=== PATIENT | female | born 1965 | race Caucasian/White ===

== ENCOUNTER 2018-02-07 06:36 | Emergency (ER) | END 2018-02-07 09:30 | disposition home or self-care (01) ==

== ENCOUNTER → 2018-04-11 | Outpatient (CLI) | END | disposition home or self-care (01) ==

== ENCOUNTER → 2018-07-04 | Outpatient (CLI) | END | disposition home or self-care (01) ==

== ENCOUNTER 2018-10-21 13:01 | Emergency (ER) | payer MEDICARE, OTHER ==
[~2018-10-21] VITALS: Ht 175.3 cm; Wt 132.2 kg
[~2018-10-21 13:01] MED LIST: ASPI-903 PO; ATOR40TA68 PO; CHOL100062 PO; GLIM4TAB PO; LANT3I SC; LEVO200T6 PO; LISI40TA3 PO; MAGN400T28 PO; MTF1000T PO; OMEP40CA6 PO; PIOG30TA12 PO; RANI300T PO; SITA100T11 PO
[2018-10-21 13:02] VITALS: BP 128/68; PULSE 80; RESP 18; Ht 175.3 cm; Wt 132.2 kg
[2018-10-21] MEDS ORDERED: PROM6.2515 PO (13:37)
[2018-10-21] MEDS ORDERED: AZIT250T PO (13:37)
[2018-10-21] MEDS ORDERED: BENZ-6 PO (13:37)
--- NOTE | 2018-10-21 14:29 | ERD ---
ER Documentation Chief Complaint Chief Complaint pt is bib caregiver with c/o cough for a few days HPI 53-year-old female presents with caregiver complaining of a cough times a few days. Patient take NyQuil but no other medications. She states the pain comes and goes over the last few weeks but states for about a week at a time. She has no fevers. No history of respiratory problems in the past. Medical history is hypertension diabetes with insulin dependency. NKDA. Surgical history cholecystectomy. Social history denies ROS All systems reviewed and are negative except as per history of present illness. Medications Home Meds Active Scripts Benzonatate* (Tessalon Perle*) 100 Mg Capsule, 100 MG PO Q8H PRN for COUGH, #30 CAP Prov:RALEIGH WOODARD PA-C 10/21/18 Promethazine Hcl* (Promethazine Hcl* Syrup) 6.25 Mg/5 Ml Syrup, 6.25 MG PO Q6H PRN for COUGH, #100 ML Prov:RALEIGH WOODARD PA-C 10/21/18 Azithromycin* (Zithromax*) 250 Mg Tablet, 250 MG PO .ZPACK DIRECTED, #6 TAB TAKE 500 MG (2 TABS) THE FIRST DAY THEN 250 MG (1 TAB) DAYS 2-5 Prov:RALEIGH WOODARD PA-C 10/21/18 Reported Medications Pioglitazone Hcl* (Actos*) 30 Mg Tablet, 30 MG PO DAILY, #30 TAB 02/07/18 Insulin Glargine* (Lantus*) 100 Unit/Ml Soln, 70 UNIT SC BID, #1 VIAL 02/07/18 Ranitidine Hcl* (Ranitidine Hcl*) 300 Mg Tablet, 300 MG PO HS, #30 TAB 02/07/18 Cholecalciferol* (Vitamin D3*) 1,000 Unit Tablet, 1000 UNIT PO DAILY, TAB 02/07/18 Atorvastatin* (Atorvastatin*) 40 Mg Tablet, 40 MG PO QHS, #30 TAB 02/07/18 Sitagliptin* (Januvia*) 100 Mg Tablet, 100 MG PO DAILY, #30 TAB 02/07/18 Omeprazole* (Omeprazole*) 40 Mg Capsule.dr, 40 MG PO AC BREAKFAST, #30 CAP 02/07/18 Aspirin* (Aspirin* Chew) 81 Mg Tab.chew, 81 MG PO DAILY, TAB.CHEW 02/07/18 Levothyroxine Sodium* (Levothyroxine Sodium*) 200 Mcg Tablet, 200 MCG PO BEFORE BREAKFAST, #30 TAB 02/07/18 Glimepiride* (Glimepiride*) 4 Mg Tablet, 4 MG PO WITH BREAKFAST DINNE, TAB 02/07/18 Magnesium Oxide* (Magnesium Oxide*) 400 Mg Tablet, 400 MG PO BID, TAB 02/07/18 Metformin* (Glucophage*) 1,000 Mg Tablet, 1000 MG PO BID, #60 TAB 02/07/18 Lisinopril* (Lisinopril*) 40 Mg Tablet, 40 MG PO BID, #30 TAB 02/07/18 Allergies Allergies: Coded Allergies: No Known Allergy (Unverified , 02/07/18) PMhx/Soc History of Surgery: Yes (THYROIDECTOMY) Anesthesia Reaction: No Hx Neurological Disorder: No Hx Respiratory Disorders: No Hx Cardiac Disorders: Yes (HTN) Hx Psychiatric Problems: No Hx Miscellaneous Medical Probl: Yes (dm) Hx Alcohol Use: No Hx Substance Use: No Hx Tobacco Use: No Smoking Status: Never smoker FmHx Family History: No diabetes, No coronary disease, No other Physical Exam Vitals Vital Signs Date Temp Pulse Resp B/P (MAP) Pulse Ox O2 O2 Flow FiO2 Time Delivery Rate 10/21/18 97.0 80 18 128/68 98 13:02 (88) Physical Exam GENERAL: The patient is well-appearing, well-nourished, in no acute distress HEENT: Atraumatic. Conjunctivae are pink. Pupils equal, round, and reactive to light. There is no scleral icterus. Tympanic membranes clear bilaterally. Oropharynx clear. NECK: C-spine is soft and supple. There is no meningismus. There is no cervical lymphadenopathy. CHEST: Clear to auscultation bilaterally. There are no rales, wheezes or rhonchi. HEART: Regular rate and rhythm. No murmurs, clicks, rubs or gallops. Procedures/MDM ER course: Pertussis test checked given patient has had chronic cough. DM: 53-year-old female presenting with cough. I have low suspicion for respiratory distress or hypoxia. I have low suspicion for pneumonia. Patient be discharged with supportive medications and recommended to refrain from taking antibiotics until symptoms persist longer than 3 or 4 more days. Patient is told symptoms change or worsen to return immediately to the ER. Patient is recommended to follow-up with primary care. All questions answered at discharge Departure Diagnosis: Primary Impression: Cough Condition: Stable Patient Instructions: Cough, Chronic, Uncertain Cause, (Adult) Referrals: ANNA MARIE WHITMORE MD (PCP) Additional Instructions: FOLLOW UP WITH YOUR PRIMARY CARE PHYSICIAN TOMORROW.Return to this facility if you are not improving as expected. RALEIGH WOODARD PA-C Oct 21, 2018 14:29
== END 2018-10-21 13:49 | disposition home or self-care (01) ==
LOC: FTE 13:01
DX: R05 Cough (principal); E11.9 Type 2 diabetes mellitus without complications; I10 Essential (primary) hypertension; Z79.82 Long term (current) use of aspirin; Z79.4 Long term (current) use of insulin
CPT/HCPCS: 87206; 99283

== ENCOUNTER → 2019-01-23 | Outpatient (CLI) | payer MEDICARE, OTHER ==
[~2019-01-23] MED LIST changes: +AZIT250T PO; +BENZ-6 PO; +PROM6.2515 PO
== END | disposition home or self-care (01) ==
LOC: LAB 16:48
PROVIDERS: ATTEND Internal Medicine
DX: R79.81 Abnormal blood-gas level (principal)
CPT/HCPCS: 36600; 82803

== ENCOUNTER 2019-02-21 09:40 | Inpatient (IN) | payer MEDICARE, OTHER ==
[~2019-02-21] VITALS: Ht 175.3 cm; Wt 129.1 kg
[2019-02-21] MEDS ORDERED: SOD CHLORIDE 0.9% 500 ML IV STA (09:45)
[2019-02-21] MEDS ORDERED: ONDANSETRON 4 MG INJ IV ONE (10:00)
[2019-02-21] MEDS ORDERED: HYDROmorphONE 1 MG/ML SYG IV ONE (10:00)
[2019-02-21] MEDS ORDERED: MAGN400T28 PO (10:13)
[2019-02-21] MEDS ORDERED: LISI40TA3 PO (10:15)
[2019-02-21] MEDS ORDERED: ATOR40TA68 PO (10:16)
[2019-02-21] MEDS ORDERED: MV-M1CAP15 PO (10:18)
[2019-02-21] MEDS ORDERED: METF100010 PO (10:18)
[2019-02-21] MEDS ORDERED: OMEP40CA6 PO (10:19)
[2019-02-21] MEDS ORDERED: GLIM4TAB PO (10:19)
--- NOTE | 2019-02-21 10:19 | ERD ---
ER Documentation Chief Complaint Chief Complaint glf-right upper arm deformity, bruising to r side of face, abrasion l knee HPI Very pleasant 53-year-old female history of diabetes who presents to the emergency room complaining of right upper extremity pain. Just prior to arrival patient states that she tripped on something on the ground and fell forward on outstretched arm. The patient landed on her right arm and now has deformity to the distal shaft humerus. Patient notes 10 out of 10 throbbing pain to the right upper extremity. She did hit the right periorbital region on the ground but did not lose consciousness. No anticoagulants. She scraped her left knee. Tetanus is up-to-date. She denies any headache or vision changes, no neck pain. No other extremity pain other than the right upper extremity. She is right- hand dominant. ROS All systems reviewed and are negative except as per history of present illness. Medications Home Meds Reported Medications Insulin Glargine* (Lantus*) 100 Unit/Ml Soln, 70 UNIT SC QHS, #1 VIAL 02/21/19 Pioglitazone Hcl* (Pioglitazone Hcl*) 30 Mg Tablet, 30 MG PO DAILY, TAB 02/21/19 Ranitidine Hcl* (Ranitidine Hcl*) 300 Mg Tablet, 300 MG PO HS, #30 TAB 02/21/19 Linagliptin (TRADJENTA) 5 Mg Tablet, 5 MG PO DAILY, TAB 02/21/19 Cholecalciferol (Vitamin D3) (VITAMIN D-3) 2,000 Unit Capsule, 2000 UNIT PO DAILY, CAP 02/21/19 Aspirin* (Aspirin* EC) 81 Mg Tablet.dr, 81 MG PO DAILY, TAB 02/21/19 Levothyroxine Sodium* (Levothyroxine Sodium*) 200 Mcg Tablet, 200 MCG PO BEFORE BREAKFAST, #30 TAB 02/21/19 Omeprazole* (Omeprazole*) 40 Mg Capsule.dr, 40 MG PO DAILY, #30 CAP 02/21/19 Glimepiride* (Glimepiride*) 4 Mg Tablet, 4 MG PO WITH BREAKFAST DINNE, TAB 02/21/19 Metformin Hcl* (Metformin Hcl*) 1,000 Mg Tablet, 1000 MG PO WITH BREAKFAST DINNE, #60 TAB 02/21/19 Mv-Mn/FA/Vit K/Lycop/Lut/Coq10 (Daily Multivitamin Capsule) 1 Each Capsule, 1 EACH PO DAILY, CAP 02/21/19 Atorvastatin* (Atorvastatin*) 40 Mg Tablet, 40 MG PO QHS, #30 TAB 02/21/19 Lisinopril* (Lisinopril*) 40 Mg Tablet, 40 MG PO BID, #30 TAB 02/21/19 Magnesium Oxide* (Magnesium Oxide*) 400 Mg Tablet, 400 MG PO BID, TAB 02/21/19 Discontinued Reported Medications Pioglitazone Hcl* (Actos*) 30 Mg Tablet, 30 MG PO DAILY, #30 TAB 02/07/18 Insulin Glargine* (Lantus*) 100 Unit/Ml Soln, 70 UNIT SC BID, #1 VIAL 02/07/18 Ranitidine Hcl* (Ranitidine Hcl*) 300 Mg Tablet, 300 MG PO HS, #30 TAB 02/07/18 Cholecalciferol* (Vitamin D3*) 1,000 Unit Tablet, 1000 UNIT PO DAILY, TAB 02/07/18 Atorvastatin* (Atorvastatin*) 40 Mg Tablet, 40 MG PO QHS, #30 TAB 02/07/18 Sitagliptin* (Januvia*) 100 Mg Tablet, 100 MG PO DAILY, #30 TAB 02/07/18 Omeprazole* (Omeprazole*) 40 Mg Capsule.dr, 40 MG PO AC BREAKFAST, #30 CAP 02/07/18 Aspirin* (Aspirin* Chew) 81 Mg Tab.chew, 81 MG PO DAILY, TAB.CHEW 02/07/18 Levothyroxine Sodium* (Levothyroxine Sodium*) 200 Mcg Tablet, 200 MCG PO BEFORE BREAKFAST, #30 TAB 02/07/18 Glimepiride* (Glimepiride*) 4 Mg Tablet, 4 MG PO WITH BREAKFAST DINNE, TAB 02/07/18 Magnesium Oxide* (Magnesium Oxide*) 400 Mg Tablet, 400 MG PO BID, TAB 02/07/18 Metformin* (Glucophage*) 1,000 Mg Tablet, 1000 MG PO BID, #60 TAB 02/07/18 Lisinopril* (Lisinopril*) 40 Mg Tablet, 40 MG PO BID, #30 TAB 02/07/18 Discontinued Scripts Benzonatate* (Tessalon Perle*) 100 Mg Capsule, 100 MG PO Q8H PRN for COUGH, #30 CAP Prov:RALEIGH WOODARD PA-C 10/21/18 Promethazine Hcl* (Promethazine Hcl* Syrup) 6.25 Mg/5 Ml Syrup, 6.25 MG PO Q6H PRN for COUGH, #100 ML Prov:RALEIGH WOODARD PA-C 10/21/18 Azithromycin* (Zithromax*) 250 Mg Tablet, 250 MG PO .ZPACK DIRECTED, #6 TAB TAKE 500 MG (2 TABS) THE FIRST DAY THEN 250 MG (1 TAB) DAYS 2-5 Prov:RALEIGH WOODARD PA-C 10/21/18 Allergies Allergies: Coded Allergies: No Known Allergy (Unverified , 02/21/19) PMhx/Soc History of Surgery: Yes (THYROIDECTOMY; Cholecystectomy) Anesthesia Reaction: No Hx Neurological Disorder: No Hx Respiratory Disorders: No Hx Cardiac Disorders: Yes (HTN) Hx Psychiatric Problems: No Hx Miscellaneous Medical Probl: Yes (dm) Hx Alcohol Use: No Hx Substance Use: No Hx Tobacco Use: No Smoking Status: Never smoker FmHx Family History: No diabetes Physical Exam Vitals Vital Signs Date Temp Pulse Resp B/P (MAP) Pulse Ox O2 O2 Flow FiO2 Time Delivery Rate 02/21/19 98.2 102 18 143/78 97 10:00 (99) Physical Exam Airway is intact Bilateral breath sounds Strong distal pulses No obvious deficits General: Well developed, well nourished, no acute distress Head: Normocephalic, atraumatic, other than small abrasion to the right periorbital ridge Eyes: Pupils equally reactive, EOM intact ENT: Moist mucous membranes, normal jaw opening and closing Neck: Supple, no lymphadenopathy, No midline tenderness, deformities, step-offs to the cervical spine, full active and passive range of motion without midline pain. Respiratory: Lungs clear bilaterally, no distress, no chest wall tenderness, no crepitus Cardiovascular: RRR, no murmurs, rubs, or gallops Abdominal: Soft, non-tender, non-distended, no peritoneal signs, pelvis is stable : Deferred MSK: The patient has obvious deformity to the distal shaft humerus. No focal tenderness of the clavicle or proximal humerus. Right wrist without focal tenderness. Strong distal pulses and good capillary refill. Compartments are soft of the right upper extremity. Mild abrasion noted to left knee but no bony abnormalities, full active and passive range of motion. No ligamentous instability. no midline tenderness deformities or step-offs to the thoracolumbar spine Neurologic: Alert and oriented, moving all extremities, normal speech, no focal weakness, no cerebellar signs Skin: No ecchymoses or bruising to the chest or abdomen Psych: Normal mood Result Diagram: 02/21/19 1019 02/21/19 1019 Results 24 hrs Laboratory Tests Test 02/21/19 10:19 White Blood Count 5.4 10^3/ul Red Blood Count 3.97 10^6/ul Hemoglobin 10.9 g/dl Hematocrit 33.8 % Mean Corpuscular Volume 85.1 fl Mean Corpuscular Hemoglobin 27.5 pg Mean Corpuscular Hemoglobin Concent 32.2 g/dl Red Cell Distribution Width 17.7 % Platelet Count 193 10^3/UL Mean Platelet Volume 11.6 fl Immature Granulocytes % 0.900 % Neutrophils % 75.7 % Lymphocytes % 13.1 % Monocytes % 7.0 % Eosinophils % 2.9 % Basophils % 0.4 % Nucleated Red Blood Cells % 0.0 /100WBC Immature Granulocytes # 0.050 10^3/ul Neutrophils # 4.1 10^3/ul Lymphocytes # 0.7 10^3/ul Monocytes # 0.4 10^3/ul Eosinophils # 0.2 10^3/ul Basophils # 0.0 10^3/ul Nucleated Red Blood Cells # 0.0 10^3/ul Prothrombin Time 11.6 Sec Prothrombin Time Ratio 0.9 INR International Normalized Ratio 0.84 Activated Partial Thromboplast Time 27.3 Sec Sodium Level 141 mmol/L Potassium Level 5.0 mmol/L Chloride Level 108 mmol/L Carbon Dioxide Level 22 mmol/L Anion Gap 11 Blood Urea Nitrogen 36 mg/dl Creatinine 1.16 mg/dl Est Glomerular Filtrat Rate mL/min 49 mL/min Glucose Level 221 mg/dl Calcium Level 9.1 mg/dl Current Medications Medications Dose Sig/Tariq Start Time Status Last (Trade) Ordered Route PRN Stop Time Admin Dose Reason Admin Sodium 500 ml @ Q1H STAT 02/21/19 DC 02/21/19 Chloride 500 mls/hr IV 09:45 02/21/19 10:22 10:44 1 mg ONCE ONCE 02/21/19 DC 02/21/19 Hydromorphone IV 10:00 02/21/19 10:22 HCl 10:01 (Dilaudid) Ondansetron 4 mg ONCE ONCE 02/21/19 DC 02/21/19 HCl (Zofran IV 10:00 02/21/19 10:22 Inj) 10:01 Ondansetron 4 mg BRIDGE ORDER 02/21/19 HCl (Zofran PRN IV 12:30 02/22/19 Inj) NAUSEA/VOMITI 12:29 NG 650 mg ER BRIDGE 02/21/19 Acetaminophen PRN PO 12:30 02/22/19 (Tylenol .MILD PAIN 12:29 Tab) 1-3 OR TEMP Procedures/MDM EKG, MONITORS, & DIAGNOSTIC IMAGING: Chest x-ray: I reviewed and interpreted a 1 view of the chest Mediastinum: No enlargement Cardiac silhouette: No cardiomegaly Airspace: Clear lung medina bilaterally without evidence of pneumothorax Bones: No evidence of fracture EKG: I reviewed and interpreted a 12-lead EKG. Rhythm: Normal sinus rhythm ST Changes: No contiguous ST segment elevations T waves: No contiguous T wave inversions Impression: [No evidence of acute cardiac ischemia] X-ray right humerus I reviewed and interpreted multiple views of the x-ray Bones: Fully displaced distal shaft humerus fracture Soft tissue: No evidence of foreign body PROCEDURES: Splint Application Note: Splint type: Sling and long-arm Extremity: Right upper extremity Indication: Fracture The patient was consented at bedside prior to splint application and states understanding of risks, benefits, and alternatives. The patient was neurovascularly intact prior to and status post application of the splint. The patient tolerated the procedure well and there were no complications. LAB INTERPRETATION: I reviewed the laboratory testing and it shows [no evidence of acute process] MEDICAL DECISION MAKING: Patient with mechanical trip and fall. Mild abrasion to the right face but no loss of consciousness. The patient has abrasions of left knee but no bony abnormalities. Clinical exam consistent with likely distal shaft humerus fracture. Compartments are soft. Patient's right upper extremity is neurovascular intact. Patient likely requires operative intervention given location of fracture. The patient will have preop laboratory testing and diagnostic imaging. The patient does not meet high-risk criteria and based on NEXUS cervical spine criteria there is no indication for cervical spine imaging at this time. While the patient did have abrasion of the face there is no loss conscious. No indication for CT imaging at this time. ER COURSE: * IV was established, patient was given pain control medication. Patient was immobilized. * heat plant specialist notified. CONSULTATION: Orthopedic surgeon, Dr. Merrill notified via telephone around 10:15 AM DISPOSITION PLAN: Accepting care team and consultations: I discussed the current laboratory data, diagnostic imaging and emergency care provided. Admitting team: Patient was reported to be admitted to Dr. Zulema Kelley who recommends admission to [facility]. Dr. Paige has accepted the case. Admitting team indication: Insurance directed Departure Diagnosis: Primary Impression: Closed fracture of right distal humerus Encounter type: initial encounter Fracture morphology: other fracture Fracture alignment: displaced Qualified Codes: S42.491A - Other displaced fracture of lower end of right humerus, initial encounter for closed fracture Additional Impressions: Abrasion, left knee, initial encounter Abrasion of face Encounter type: initial encounter Qualified Codes: S00.81XA - Abrasion of other part of head, initial encounter Condition: Stable CHAKA PEDERSEN MD Feb 21, 2019 10:19
[2019-02-21] MEDS ORDERED: LEVO200T6 PO (10:20)
[2019-02-21] MEDS ORDERED: ASPI-817 PO (10:20)
[2019-02-21] MEDS ORDERED: CHOL200073 PO (10:22)
[2019-02-21] MEDS ORDERED: LINA5TAB PO (10:22)
[2019-02-21] MEDS ORDERED: RANI300T PO (10:23)
[2019-02-21] MEDS ORDERED: PIOG30TA71 PO (10:23)
[2019-02-21] MEDS ORDERED: LANT3I SC (10:24)
[2019-02-21] MEDS ORDERED: ACETAMINOPHEN 325 MG TAB PO PRN (12:30)
[2019-02-21] MEDS ORDERED: ONDANSETRON 4 MG INJ IV PRN (12:30)
--- NOTE | 2019-02-21 14:50 | CONS ---
DATE OF ADMISSION: 02/21/2019 DATE OF CONSULTATION: 02/21/2019 HISTORY OF PRESENT ILLNESS: The patient is a 53-year-old female who was admitted on 02/21/2019 when she was brought into the Emergency Room because of the painful swelling and deformity involving the r ight upper extremity. According to the patient, she had a ground-level fall, landing on cement Truzip in her driveway on the day of her admission, because she tripped over something. She obviously la nded on her right upper extremity and developed a painful swelling and deformities. PAST MEDICAL HISTORY: She is known to have diabetes mellitus and hypertension. She had a thyroidect arely and cholecystectomy in the past. She claims that her diabetes is under control. PHYSICAL EXAMINATION: My examination revealed a 53-year-old female who was not in any acute distress . The right upper extremity was immobilized in a long arm posterior splint down to the level of the hand. There was tenderness and abnormal motion in the distal portion of the right arm and the examin ation through the splint and there was an obvious numbness in the distribution of the radial nerve of the right hand; however, the range of motion of the wrist cannot be tested at this time because of t he splint immobilization. DIAGNOSTIC STUDIES: X-rays of the right elbow revealed a presence of obvious comminuted fracture of the right humerus which is displaced. DIAGNOSTIC IMPRESSION: Comminuted and displaced fracture involving the distal shaft of the right hum erus. TREATMENT PLAN: Surgery as soon as she can be medically cleared for exploration of the area for poss ible neurovascular injury, followed by open reduction and internal fixation of the comminuted fractur e involving the distal shaft of the right humerus. Dictated By: EDUAR DUKE/NORA Conf#: [id number] DID#: [id number] CC: CHALINO MTZ MD;*EndCC*
[2019-02-21 15:03] VITALS: Ht 175.3 cm; Wt 129.1 kg
--- NOTE | 2019-02-21 16:12 | HP ---
Date/Time of Note Date/Time of Note DATE: 02/21/19 TIME: 16:04 Assessment/Plan VTE Prophylaxis SCD applied (from Nsg): Yes Pharmacological prophylaxis: LMWH Lines/Catheters IV Catheter Type (from Nrsg): Saline Lock Assessment/Plan Assessment/Plan -Closed fracture of right distal humerus. Dr. Merrill is following in orthopedic surgery consultation. Given patient has a history of hypertension and history of PA will obtain cardiology clearance Dr Ferguson prior to ORIF R humerus. -Abrasion, left knee, initial encounter -Abrasion of face -Diabetes, continue Tradjenta Actos Lantus and NovoLog -Hypertension, continue lisinopril -Hypothyroidism, continue levothyroxine -Morbid obesity with BMI of 42 -History of minor stroke, continue aspirin -History of PA according to the patient Further recommendations based on clinical course. Plan of care discussed with Dr. Paige. Result Diagram: 02/21/19 1019 02/21/19 1019 Results 24hrs Laboratory Tests Test 02/21/19 10:19 White Blood Count 5.4 # Red Blood Count 3.97 L Hemoglobin 10.9 L Hematocrit 33.8 L Mean Corpuscular Volume 85.1 Mean Corpuscular Hemoglobin 27.5 L Mean Corpuscular Hemoglobin Concent 32.2 Red Cell Distribution Width 17.7 H Platelet Count 193 Mean Platelet Volume 11.6 H Immature Granulocytes % 0.900 H Neutrophils % 75.7 Lymphocytes % 13.1 L Monocytes % 7.0 Eosinophils % 2.9 Basophils % 0.4 Nucleated Red Blood Cells % 0.0 Immature Granulocytes # 0.050 H Neutrophils # 4.1 Lymphocytes # 0.7 L Monocytes # 0.4 Eosinophils # 0.2 Basophils # 0.0 Nucleated Red Blood Cells # 0.0 Prothrombin Time 11.6 L Prothrombin Time Ratio 0.9 INR International Normalized Ratio 0.84 Activated Partial Thromboplast Time 27.3 Sodium Level 141 Potassium Level 5.0 Chloride Level 108 Carbon Dioxide Level 22 Anion Gap 11 Blood Urea Nitrogen 36 H Creatinine 1.16 H Est Glomerular Filtrat Rate mL/min 49 L Glucose Level 221 H Calcium Level 9.1 HPI/ROS Admit Date/Time Admit Date/Time Feb 21, 2019 at 12:07 Hx of Present Illness The patient is a 53-year-old female with history of diabetes, hypertension, hypothyroidism, history of stroke, and morbid obesity who lives with us in assisted living facility with visiting nurse twice a day. Patient was brought to the emergency room with complaints of right upper extremity pain. Patient stated that she tripped on something and sustained a ground-level fall with outstretched arm. Patient complains of significant pain in the right upper extremity. Patient denies any shortness of breath denies any chest pain patient denies any loss of consciousness. Patient denies any headache denies any vision changes denies any neck pain. X-ray of the right humerus revealed displaced comminuted fracture of the distal humeral diaphysis. Patient is admitted for further evaluation and management to medical surgical floor. ROS 12 point review of system is negative except for what mentioned in HPI PMH/Family/Social Past Medical History Medical History: diabetes, hypertension, hypothyroid Medications Current Medications Ondansetron HCl (Zofran Inj) 4 mg BRIDGE ORDER PRN IV NAUSEA/VOMITING; Start 02/21/19 at 12:30; Stop 02/22/19 at 12:29 Acetaminophen (Tylenol Tab) 650 mg ER BRIDGE PRN PO .MILD PAIN 1-3 OR TEMP; Start 02/21/19 at 12:30; Stop 02/22/19 at 12:29 Aspirin (Halfprin) 81 mg DAILY PO ; Start 02/22/19 at 09:00; Status UNV Atorvastatin Calcium (Lipitor) 40 mg QHS PO ; Start 02/21/19 at 21:00; Status UNV Cholecalciferol (Vitamin D) 2,000 unit DAILY PO ; Start 02/22/19 at 09:00; Status UNV Glimepiride (Amaryl) 4 mg WITH BREAKFAST DINNE PO ; Start 02/21/19 at 17:55; Status UNV Insulin Glargine (Lantus) 70 units QHS SC ; Start 02/21/19 at 21:00; Status UNV Levothyroxine Sodium (Synthroid) 200 mcg BEFORE BREAKFAST PO ; Start 02/22/19 at 07:00; Status UNV Linagliptin (Tradjenta) 5 mg DAILY PO ; Start 02/22/19 at 09:00; Status UNV Coded Allergies: No Known Allergy (Unverified , 02/21/19) Past Surgical History Past Surgical Hx: cholecystectomy (Status post open cholecystectomy in 2013), other (Status post total thyroidectomy in 1993 for thyroid cancer per patient, status post left ankle surgery) Family History Significant Family History: diabetes Social History Alcohol Use: none Smoking Status: Former smoker Drug Use: none Exam/Review of Systems Vital Signs Vitals Vital Signs Date Temp Pulse Resp B/P (MAP) Pulse Ox O2 O2 Flow FiO2 Time Delivery Rate 02/21/19 83 15 139/78 94 Room Air 13:00 (98) 02/21/19 98.2 10:00 Exam Constitutional: alert, oriented Head: normocephalic Neck: supple Respiratory: clear to auscultation Cardiovascular: nl pulses Gastrointestinal: soft, non-tender Extremities: normal pulses, other (Right upper extremity immobilized in splint) Neurological: nl mental status Skin: nl VICKI Michel Feb 21, 2019 16:12
[2019-02-21] MEDS ORDERED: GLUCOSE GEL 15 GRAM TUBE BUCCAL PRN (17:00)
[2019-02-21] MEDS ORDERED: DEXTROSE 50% 50 ML SYRINGE IV PRN ×2 (17:00)
[2019-02-21] MEDS ORDERED: GLUCAGON 1 MG INJ IM PRN (17:00)
[2019-02-21] MEDS ORDERED: GLUCOSE GEL 15 GRAM TUBE PO PRN ×2 (17:00)
[2019-02-21] MEDS ORDERED: GLIMEPIRIDE 4 MG TAB PO SCH (17:55)
[2019-02-21] MEDS ORDERED: morphine 2 MG INJ IV PRN (18:10)
[2019-02-21] MEDS: metFORMIN 500 MG TAB PO SCH (18:16)
[2019-02-21] MEDS: INSULIN ASPART [NOVOLOG] 3 ML PEN SC SCH ×2 (18:17→20:17)
[2019-02-21 19:16] VITALS: BP 121/58; PULSE 97; RESP 18
[2019-02-21] MEDS: LISINOPRIL 20 MG TAB PO SCH (20:15)
[2019-02-21] MEDS: MAGNESIUM OXIDE 400 MG TAB PO SCH (20:15)
[2019-02-21] MEDS: ATORVASTATIN 40 MG TAB PO SCH (20:15)
[2019-02-21] MEDS ORDERED: Insulin NOVOLOG SS MILD Algorithm (SS with meals and bedtime) SC SCH (21:00)
[2019-02-21] MEDS ORDERED: RANITIDINE 150 MG TAB PO SCH (21:00)
[2019-02-21] MEDS: INSULIN GLARGINE [LANTus] (100 UNITS/ML) SYG SC SCH (22:24)
[2019-02-21] MEDS: morphine 4 MG/ML VIAL IV PRN (22:26)
[2019-02-22 01:26] VITALS: BP 122/60; PULSE 88; RESP 20
[2019-02-22] MEDS: ACCU-CHEK XX SCH (02:00)
[2019-02-22] MEDS: ACCUCHECK 2 AM XX SCH (02:02)
[2019-02-22] MEDS: morphine 4 MG/ML VIAL IV PRN (06:01)
[2019-02-22] MEDS: PANTOPRAZOLE (EC) 40 MG TAB PO SCH (06:03)
[2019-02-22] MEDS: LEVOTHYROXINE 100 MCG TAB PO SCH (06:03)
[2019-02-22 07:39] VITALS: BP 135/62; PULSE 79; RESP 16
[2019-02-22] MEDS: MAGNESIUM OXIDE 400 MG TAB PO SCH ×2 (08:45→21:18)
[2019-02-22] MEDS: PIOGLITAZONE 30 MG TAB PO SCH (08:45)
[2019-02-22] MEDS: ASPIRIN (EC) 81 MG TAB PO SCH (08:45)
[2019-02-22] MEDS: LISINOPRIL 20 MG TAB PO SCH ×2 (08:45→21:18)
[2019-02-22] MEDS: CHOLECALCIFEROL 2,000 UNIT CAP PO SCH (08:46)
[2019-02-22] MEDS: MULTIVITAMINS/MINERALS TAB PO SCH (08:46)
[2019-02-22] MEDS: LINAGLIPTIN 5 MG TABLET PO SCH (08:46)
[2019-02-22] MEDS: metFORMIN 500 MG TAB PO SCH ×2 (08:48→17:41)
[2019-02-22] MEDS: INSULIN ASPART [NOVOLOG] 3 ML PEN SC SCH ×4 (08:51→21:00)
[2019-02-22] MEDS: ENOXAPARIN 40 MG/0.4 ML SYG SC SCH (08:52)
--- NOTE | 2019-02-22 12:42 | PN ---
Date/Time of Note Date/Time of Note DATE: 02/22/19 TIME: 12:38 Assessment/Plan VTE Prophylaxis Risk score (from Ns)>0 risk: 4 SCD applied (from Ns): Yes Pharmacological prophylaxis: NA/contraindicated Pharm contraindication: surgical contra Lines/Catheters IV C[facility] Type (from [facility] Peripheral IV Urinary Cath still in place: No Assessment/Plan Hospital Course Patient remains hemodynamically stable denies any chest pain, denies shortness of breath. Cleared from cardiology and internal medicine standpoint for orthopedic surgery. Assessment/Plan -Closed fracture of right distal humerus. Dr. Merrill is following in orthopedic surgery consultation. Pending ORIF R humerus. S/p evaluation by Dr. Ferguson in cardiology consultation, cleared for surgery. -Abrasion, left knee, initial encounter, continue local care. -Abrasion of face, continue local care. -Diabetes, continue Tradjenta Actos Lantus and NovoLog -Hypertension, continue lisinopril -Hypothyroidism, continue levothyroxine -Morbid obesity with BMI of 42 -History of minor stroke, continue aspirin -History of [place] according to the patient Further recommendations based on clinical course. Plan of care discussed with Dr. Paige. Result Diagram: 02/21/19 1019 02/21/19 1019 Results 24hrs Laboratory Tests Test 02/21/19 18:15 02/21/19 20:14 02/21/19 22:22 02/22/19 00:19 Bedside Glucose 285 H 260 H 208 Troponin I < 0.012 Test 02/22/19 01:40 02/22/19 04:38 02/22/19 08:36 Bedside Glucose 171 177 Troponin I < 0.012 Exam/Review of Systems Exam Vitals Vital Signs Date Temp Pulse Resp B/P (MAP) Pulse Ox O2 O2 Flow FiO2 Time Delivery Rate 02/22/19 98.6 79 16 135/62 93 Room Air 07:39 (86) Intake and Output 02/21/19 02/21/19 02/22/19 1414:59 22:59 06:59 IntakeIntake Total 560 ml BalanceBalance 560 ml Exam Constitutional: alert, oriented Respiratory: clear to auscultation Cardiovascular: nl pulses Gastrointestinal: soft, non-tender Extremities: normal pulses, other (Right upper extremity immobilized in splint) Neurological: nl mental status Skin: nl turgor Results Results 24hrs Laboratory Tests Test 02/21/19 18:15 02/21/19 20:14 02/21/19 22:22 02/22/19 00:19 Bedside Glucose 285 H 260 H 208 Troponin I < 0.012 Test 02/22/19 01:40 02/22/19 04:38 02/22/19 08:36 Bedside Glucose 171 177 Troponin I < 0.012 Medications Medication Current Medications Aspirin (Halfprin) 81 mg DAILY PO Last administered on 02/22/19 08:45; Admin Dose 81 MG; Start 02/22/19 at 09:00 Atorvastatin Calcium (Lipitor) 40 mg QHS PO Last administered on 02/21/19 20:15; Admin Dose 40 MG; Start 02/21/19 at 21:00 Cholecalciferol (Vitamin D) 2,000 unit DAILY PO Last administered on 02/22/19 08:46; Admin Dose 2,000 UNIT; Start 02/22/19 at 09:00 Insulin Glargine (Lantus) 70 units QHS SC Last administered on 02/21/19 22:24; Admin Dose 70 UNITS; Start 02/21/19 at 21:00 Levothyroxine Sodium (Synthroid) 200 mcg BEFORE BREAKFAST PO Last administered on 02/22/19 06:03; Admin Dose 200 MCG; Start 02/22/19 at 07:00 Linagliptin (Tradjenta) 5 mg DAILY PO Last administered on 02/22/19 08:46; Admin Dose 5 MG; Start 02/22/19 at 09:00 Lisinopril (Zestril) 40 mg BID PO Last administered on 02/22/19 08:45; Admin Dose 40 MG; Start 02/21/19 at 21:00 Magnesium Oxide (Mag-Ox 400) 400 mg BID PO Last administered on 02/22/19 08:45; Admin Dose 400 MG; Start 02/21/19 at 21:00 Metformin HCl (Glucophage) 1,000 mg WITH BREAKFAST DINNE PO Last administered on 02/22/19 08:48; Admin Dose 1,000 MG; Start 02/21/19 at 17:55 Pioglitazone HCl (Actos) 30 mg DAILY PO Last administered on 02/22/19 08:45; Admin Dose 30 MG; Start 02/22/19 at 09:00 Multivitamins/ Minerals (Theragran-M) 1 tab DAILY PO Last administered on 02/22/19at 08:46; Admin Dose 1 TAB; Start 02/22/19 at 09:00 Pantoprazole (Protonix Tab) 40 mg DAILY@06 PO Last administered on 02/22/19at 06:03; Admin Dose 40 MG; Start 02/22/19 at 06:00 Miscellaneous Information 1 ea NOTE XX ; Start 02/21/19 at 17:00 Glucose (Glutose) 15 gm Q15M PRN PO DECREASED GLUCOSE; Start 02/21/19 at 17:00 Glucose (Glutose) 22.5 gm Q15M PRN PO DECREASED GLUCOSE; Start 02/21/19 at 17:00 Dextrose (D50w Syringe) 25 ml Q15M PRN IV DECREASED GLUCOSE; Start 02/21/19 at 17:00 Dextrose (D50w Syringe) 50 ml Q15M PRN IV DECREASED GLUCOSE; Start 02/21/19 at 17:00 Glucagon (Glucagen) 1 mg Q15M PRN IM DECREASED GLUCOSE; Start 02/21/19 at 17:00 Glucose (Glutose) 15 gm Q15M PRN BUCCAL DECREASED GLUCOSE; Start 02/21/19 at 17:00 Diagnostic Test (Pha) (Accu-Chek) 1 ea 02 XX Last administered on 02/22/19at 02:00; Admin Dose 1 EA; Start 02/22/19 at 02:00 Insulin Aspart (Novolog Insulin Pen) NOVOLOG *MILD* ALGORITHM WITH MEALS BEDTI ND SC Last administered on 02/22/19at 08:51; Admin Dose 1 UNIT; Start 02/21/19 at 17:55 Acetaminophen/ Hydrocodone Bitart ([place] (10/325)) 1 tab Q4H PRN PO MODERATE PAIN LEVEL 4-6; Start 02/21/19 at 18:10 Diagnostic Test (Pha) (Accu-Chek) 1 ea 02 XX Last administered on 02/22/19at 02:02; Admin Dose 1 EA; Start 02/21/19 at 19:30 Morphine Sulfate (morphine) 4 mg Q4H PRN IV SEVERE PAIN LEVEL 7-10 Last a dministered on 02/22/19at 06:01; Admin Dose 4 MG; Start 02/21/19 at 22:30 Enoxaparin Sodium (Lovenox) 40 mg DAILY SC Last administered on 02/22/19at 08:52; Admin Dose 40 MG; Start 02/22/19 at 09:00 VICKI ZULUAGA Feb 22, 2019 12:42
--- NOTE | 2019-02-22 13:00 | RADRPT ---
Echocardiogram Report Patient Name: DEL CHOWDARYPatient ID: [id number] : 1965 (53y 8m)Study Date: 02/22/2019 7:16:30 AM Gender: FAccession #: [id number] Tech: OK Location: [facility] Ref.Physician: VICKI ZULUAGA Height(Cm): BSA: Weight(Kg): Quality: AdequateOrder Physician: VICKI ZULUAGA Account #: Procedures: Echocardiographic Report: Transthoracic echocardiogram with complete 2D, M-Mode, and doppler examination. Indications: Evaluate Left Ventricular function. Measurements: 2D/M Mode Doppler Measurement Value Normal Range Measurement Value Normal Range LVIDd 2D 4.9 [ 3.8 - 5.2 ] cm AV Peak Andrew 1.1 [ 100.0 - 170.0 ] cm/sec LVIDs 2D 2.6 [ 2.2 - 3.5 ] cm AV Peak PG 5.0 [ 2.0 - 9.0 ] mmHg LVPWd 2D 1.1 [ 0.6 - 0.9 ] cm LVOT Peak Andrew 1.1 [ 70.0 - 110.0 ] cm/sec IVSd 2D 1.1 [ 0.6 - 0.9 ] cm LVOT Peak PG 5.0 [ 2.0 - 6.0 ] mmHg AoR Diam 2D 2.1 [ 2.3 - 3.1 ] cm MV E Peak Andrew 0.7 [ 60.0 - 130.0 ] cm/sec EDV 2D 113.0 [ 46.0 - 106.0 ] ml MV A Peak Andrew 1.1 [ 100.0 - 120.0 ] cm/sec ESV 2D 24.1 [ 14.0 - 42.0 ] ml MV E/A 0.6 [ 0.8 - 1.5 ] ratio EF 2D 78.7 [ 54.0 - 74.0 ] percent MV Decel Time 254 [ 104 - 258 ] msec LA Dimen 2D 3.9 [ 2.7 - 3.8 ] cm Lat E` Andrew 0.1 [ 10.0 - 15.0 ] cm/sec Lateral E/E` 7.7 [ 1.0 - 2.0 ] ratio MV E/A 0.6 [ 0.8 - 1.5 ] ratio TR Peak Andrew 2.8 [ 100.0 - 280.0 ] cm/sec TR Peak PG 31.0 mmHg RVSP 34.0 [ 10.0 - 36.0 ] mmHg RA Pressure 3.0 mmHg Findings: Left Ventricle: Normal left ventricular systolic function. Normal left ventricular cavity size. Mild concentric left ventricular hypertrophy. Ejection fraction is visually estimated at 65 %. Tissue Doppler/Mitral Doppler indices are consistent with impaired relaxation (Stage I diastolic dysfunction). Right Ventricle: Normal right ventricular size. Normal right ventricular systolic function. Left Atrium: The left atrium is normal in size. Right Atrium: The right atrium is normal in size. Mitral Valve: Normal appearance and function of the mitral valve with trace physiologic regurgitation. Aortic Valve: Normal appearance of the aortic valve. No significant aortic stenosis or insufficiency. Tricuspid Valve: Normal appearance and function of the tricuspid valve with trace physiologic regurgitation. The estimated Peak RVSP is 34 mmHg. Pulmonic Valve: Normal pulmonic valve appearance. Pericardium: Normal pericardium with no significant pericardial effusion. Aorta: Normal aortic root. IVC: Normal size and normal respiratory collapse consistent with normal right atrial pressure. Conclusions: Normal left ventricular systolic function. Normal left ventricular cavity size. Mild concentric left ventricular hypertrophy. Ejection fraction is visually estimated at 65 %. Tissue Doppler/Mitral Doppler indices are consistent with impaired relaxation (Stage I diastolic dysfunction). Normal right ventricular size. Normal right ventricular systolic function. The left atrium is normal in size. The right atrium is normal in size. No significant valvular stenosis or regurgitation seen. Normal pericardium with no significant pericardial effusion. Electronically Signed By: Andrew Ferguson 2019-02-22 12:59:06 PDT
--- NOTE | 2019-02-22 13:36 | CONS ---
Assessment/Plan Assessment/Plan Hospital Course (Demo Recall) Preoperative cardiac risk stratification Right upper extremity fracture Preserved left ventricular ejection fraction Diabetes Hypertension Dyslipidemia Patient with mechanical fall and right upper extremity fracture Patient with good exercise capacity as mentioned, able to walk at least 2 fli ghts of stairs and 100 feet without any symptoms of chest pain or shortness of breath No significant ischemic abnormalities on ECG, echocardiogram with preserved left ventricular ejection fraction Given risk factors, patient is at an intermediate risk for any untoward cardiac events for orthopedic surgery. The benefits likely outweigh the risks. From a cardiac standpoint, okay to proceed with surgery at the current time Consultation Date/Type/Reason Admit Date/Time Feb 21, 2019 at 12:07 Type of Consult Cardiology Reason for Consultation Preoperative cardiac risk stratification Date/Time of Note DATE: 02/22/19 TIME: 13:30 Hx of Present Illness This is a 53-year-old female with past medical history of diabetes, hypertension who presents after mechanical fall. Patient was walking out of her house and tripped over a piece of void. She fell on her arm as well as her face. No chest pain or shortness of breath, no loss of consciousness. Patient found to have right upper extremity fracture and is pending surgery. Patient denies any past cardiac history. She is active, she can climb at least 2 flights of stairs with no symptoms of chest pain or shortness of breath. She can walk at least 100 feet without symptoms of chest pain or shortness of breath. 12 point review of systems was performed with all pertinent positives and negatives mentioned above and all else is negative Past Medical History Medical History: diabetes, high cholesterol, hypertension Home Meds Reported Medications Insulin Glargine* (Lantus*) 100 Unit/Ml Soln, 70 UNIT SC QHS, #1 VIAL 02/21/19 Pioglitazone Hcl* (Pioglitazone Hcl*) 30 Mg Tablet, 30 MG PO DAILY, TAB 02/21/19 Ranitidine Hcl* (Ranitidine Hcl*) 300 Mg Tablet, 300 MG PO HS, #30 TAB 02/21/19 Linagliptin (TRADJENTA) 5 Mg Tablet, 5 MG PO DAILY, TAB 02/21/19 Cholecalciferol (Vitamin D3) (VITAMIN D-3) 2,000 Unit Capsule, 2000 UNIT PO DAILY, CAP 02/21/19 Aspirin* (Aspirin* EC) 81 Mg Tablet.dr, 81 MG PO DAILY, TAB 02/21/19 Levothyroxine Sodium* (Levothyroxine Sodium*) 200 Mcg Tablet, 200 MCG PO BEFORE BREAKFAST, #30 TAB 02/21/19 Omeprazole* (Omeprazole*) 40 Mg Capsule.dr, 40 MG PO DAILY, #30 CAP 02/21/19 Glimepiride* (Glimepiride*) 4 Mg Tablet, 4 MG PO WITH BREAKFAST DINNE, TAB 02/21/19 Metformin Hcl* (Metformin Hcl*) 1,000 Mg Tablet, 1000 MG PO WITH BREAKFAST DINNE, #60 TAB 02/21/19 Mv-Mn/FA/Vit K/Lycop/Lut/Coq10 (Daily Multivitamin Capsule) 1 Each Capsule, 1 EACH PO DAILY, CAP 02/21/19 Atorvastatin* (Atorvastatin*) 40 Mg Tablet, 40 MG PO QHS, #30 TAB 02/21/19 Lisinopril* (Lisinopril*) 40 Mg Tablet, 40 MG PO BID, #30 TAB 02/21/19 Magnesium Oxide* (Magnesium Oxide*) 400 Mg Tablet, 400 MG PO BID, TAB 02/21/19 Discontinued Reported Medications Pioglitazone Hcl* (Actos*) 30 Mg Tablet, 30 MG PO DAILY, #30 TAB 02/07/18 Insulin Glargine* (Lantus*) 100 Unit/Ml Soln, 70 UNIT SC BID, #1 VIAL 02/07/18 Ranitidine Hcl* (Ranitidine Hcl*) 300 Mg Tablet, 300 MG PO HS, #30 TAB 02/07/18 Cholecalciferol* (Vitamin D3*) 1,000 Unit Tablet, 1000 UNIT PO DAILY, TAB 02/07/18 Atorvastatin* (Atorvastatin*) 40 Mg Tablet, 40 MG PO QHS, #30 TAB 02/07/18 Sitagliptin* (Januvia*) 100 Mg Tablet, 100 MG PO DAILY, #30 TAB 02/07/18 Omeprazole* (Omeprazole*) 40 Mg Capsule.dr, 40 MG PO AC BREAKFAST, #30 CAP 02/07/18 Aspirin* (Aspirin* Chew) 81 Mg Tab.chew, 81 MG PO DAILY, TAB.CHEW 02/07/18 Levothyroxine Sodium* (Levothyroxine Sodium*) 200 Mcg Tablet, 200 MCG PO BEFORE BREAKFAST, #30 TAB 02/07/18 Glimepiride* (Glimepiride*) 4 Mg Tablet, 4 MG PO WITH BREAKFAST DINNE, TAB 02/07/18 Magnesium Oxide* (Magnesium Oxide*) 400 Mg Tablet, 400 MG PO BID, TAB 02/07/18 Metformin* (Glucophage*) 1,000 Mg Tablet, 1000 MG PO BID, #60 TAB 02/07/18 Lisinopril* (Lisinopril*) 40 Mg Tablet, 40 MG PO BID, #30 TAB 02/07/18 Discontinued Scripts Benzonatate* (Tessalon Perle*) 100 Mg Capsule, 100 MG PO Q8H PRN for COUGH, #30 CAP Prov:RALEIGH WOODARD PA-C 10/21/18 Promethazine Hcl* (Promethazine Hcl* Syrup) 6.25 Mg/5 Ml Syrup, 6.25 MG PO Q6H PRN for COUGH, #100 ML Prov:RALEIGH WOODARD PA-C 10/21/18 Azithromycin* (Zithromax*) 250 Mg Tablet, 250 MG PO .JORGE DIRECTED, #6 TAB TAKE 500 MG (2 TABS) THE FIRST DAY THEN 250 MG (1 TAB) DAYS 2-5 Prov:RALEIGH WOODARD PA-C 10/21/18 Medications Current Medications Aspirin (Halfprin) 81 mg DAILY PO Last administered on 02/22/19at 08:45; Admin Dose 81 MG; Start 02/22/19 at 09:00 Atorvastatin Calcium (Lipitor) 40 mg QHS PO Last administered on 02/21/19at 20:15; Admin Dose 40 MG; Start 02/21/19 at 21:00 Cholecalciferol (Vitamin D) 2,000 unit DAILY PO Last administered on 02/22/19at 08:46; Admin Dose 2,000 UNIT; Start 02/22/19 at 09:00 Insulin Glargine (Lantus) 70 units QHS SC Last administered on 02/21/19at 22:24; Admin Dose 70 UNITS; Start 02/21/19 at 21:00 Levothyroxine Sodium (Synthroid) 200 mcg BEFORE BREAKFAST PO Last administered on 02/22/19at 06:03; Admin Dose 200 MCG; Start 02/22/19 at 07:00 Linagliptin (Tradjenta) 5 mg DAILY PO Last administered on 02/22/19at 08:46; Admin Dose 5 MG; Start 02/22/19 at 09:00 Lisinopril (Zestril) 40 mg BID PO Last administered on 02/22/19at 08:45; Admin Dose 40 MG; Start 02/21/19 at 21:00 Magnesium Oxide (Mag-Ox 400) 400 mg BID PO Last administered on 02/22/19at 08:45; Admin Dose 400 MG; Start 02/21/19 at 21:00 Metformin HCl (Glucophage) 1,000 mg WITH BREAKFAST DINNE PO Last administered on 02/22/19at 08:48; Admin Dose 1,000 MG; Start 02/21/19 at 17:55 Pioglitazone HCl (Actos) 30 mg DAILY PO Last administered on 02/22/19at 08:45; Admin Dose 30 MG; Start 02/22/19 at 09:00 Multivitamins/ Minerals (Theragran-M) 1 tab DAILY PO Last administered on 02/22/19at 08:46; Admin Dose 1 TAB; Start 02/22/19 at 09:00 Pantoprazole (Protonix Tab) 40 mg DAILY@06 PO Last administered on 02/22/19at 06:03; Admin Dose 40 MG; Start 02/22/19 at 06:00 Miscellaneous Information 1 ea NOTE XX ; Start 02/21/19 at 17:00 Glucose (Glutose) 15 gm Q15M PRN PO DECREASED GLUCOSE; Start 02/21/19 at 17:00 Glucose (Glutose) 22.5 gm Q15M PRN PO DECREASED GLUCOSE; Start 02/21/19 at 17:00 Dextrose (D50w Syringe) 25 ml Q15M PRN IV DECREASED GLUCOSE; Start 02/21/19 at 17:00 Dextrose (D50w Syringe) 50 ml Q15M PRN IV DECREASED GLUCOSE; Start 02/21/19 at 17:00 Glucagon (Glucagen) 1 mg Q15M PRN IM DECREASED GLUCOSE; Start 02/21/19 at 17:00 Glucose (Glutose) 15 gm Q15M PRN BUCCAL DECREASED GLUCOSE; Start 02/21/19 at 17:00 Diagnostic Test (Pha) (Accu-Chek) 1 ea 02 XX Last administered on 02/22/19at 02:00; Admin Dose 1 EA; Start 02/22/19 at 02:00 Insulin Aspart (Novolog Insulin Pen) NOVOLOG *MILD* ALGORITHM WITH MEALS BEDTIME SC Last administered on 02/22/19at 13:08; Admin Dose 3 UNIT; Start 02/21/19 at 17:55 Acetaminophen/ Hydrocodone Bitart ([place] (10/325)) 1 tab Q4H PRN PO MODERATE PAIN LEVEL 4-6; Start 02/21/19 at 18:10 Diagnostic Test (Pha) (Accu-Chek) 1 ea 02 XX Last administered on 02/22/19at 02:02; Admin Dose 1 EA; Start 02/21/19 at 19:30 Morphine Sulfate (morphine) 4 mg Q4H PRN IV SEVERE PAIN LEVEL 7-10 Last administered on 02/22/19at 06:01; Admin Dose 4 MG; Start 02/21/19 at 22:30 Enoxaparin Sodium (Lovenox) 40 mg DAILY SC Last administered on 02/22/19at 08:52; Admin Dose 40 MG; Start 02/22/19 at 09:00 Allergies: Coded Allergies: No Known Allergy (Unverified , 02/21/19) Past Surgical History Past Surgical Hx: cholecystectomy (Status post open cholecystectomy in 2013), other (Status post total thyroidectomy in 1993 for thyroid cancer per patient, status post left ankle surgery) Social History Alcohol Use: none Smoking Status: Former smoker Drug Use: none Exam/Review of Systems Vital Signs Vitals Vital Signs Date Temp Pulse Resp B/P (MAP) Pulse Ox O2 O2 Flow FiO2 Time Delivery Rate 02/22/19 98.6 79 16 135/62 93 Room Air 07:39 (86) Intake and Output 02/21/19 02/21/19 02/22/19 1515:00 23:00 07:00 IntakeIntake Total 560 ml BalanceBalance 560 ml Exam Constitutional: alert, oriented (No apparent distress, obese) Head: normocephalic, lacerations (Right side of face) Respiratory: other (Coarse breath sounds bilaterally, no wheezing) Cardiovascular: regular rate and rhythm, other (S1-S2 heard) Gastrointestinal: soft, non-tender, bowel sounds Extremities: other (Trace lower extremity edema, right arm and bandage) Labs Result Diagram: 02/21/19 1019 02/21/19 1019 Results 24hrs Laboratory Tests Test 02/21/19 18:15 02/21/19 20:14 02/21/19 22:22 02/22/19 00:19 Bedside Glucose 285 H 260 H 208 Troponin I < 0.012 Test 02/22/19 01:40 02/22/19 04:38 02/22/19 08:36 02/22/19 13:00 Bedside Glucose 171 177 257 H Troponin I < 0.012 Imaging Imaging ECG demonstrates sinus rhythm at 77 bpm, QRS 96 ms, no significant ischemic ST abnormalities Medications Medications Current Medications Aspirin (Halfprin) 81 mg DAILY PO Last administered on 02/22/19 08:45; Admin Dose 81 MG; Start 02/22/19 at 09:00 Atorvastatin Calcium (Lipitor) 40 mg QHS PO Last administered on 02/21/19 20:15; Admin Dose 40 MG; Start 02/21/19 at 21:00 Cholecalciferol (Vitamin D) 2,000 unit DAILY PO Last administered on 02/22/19 08:46; Admin Dose 2,000 UNIT; Start 02/22/19 at 09:00 Insulin Glargine (Lantus) 70 units QHS SC Last administered on 02/21/19 22:24; Admin Dose 70 UNITS; Start 02/21/19 at 21:00 Levothyroxine Sodium (Synthroid) 200 mcg BEFORE BREAKFAST PO Last administered on 02/22/19 06:03; Admin Dose 200 MCG; Start 02/22/19 at 07:00 Linagliptin (Tradjenta) 5 mg DAILY PO Last administered on 02/22/19 08:46; Admin Dose 5 MG; Start 02/22/19 at 09:00 Lisinopril (Zestril) 40 mg BID PO Last administered on 02/22/19 08:45; Admin Dose 40 MG; Start 02/21/19 at 21:00 Magnesium Oxide (Mag-Ox 400) 400 mg BID PO Last administered on 02/22/19 08:45; Admin Dose 400 MG; Start 02/21/19 at 21:00 Metformin HCl (Glucophage) 1,000 mg WITH BREAKFAST DINNE PO Last administered on 02/22/19 08:48; Admin Dose 1,000 MG; Start 02/21/19 at 17:55 Pioglitazone HCl (Actos) 30 mg DAILY PO Last administered on 7/3/19at 08:45; Admin Dose 30 MG; Start 02/22/19 at 09:00 Multivitamins/ Minerals (Theragran-M) 1 tab DAILY PO Last administered on 02/22/19at 08:46; Admin Dose 1 TAB; Start 02/22/19 at 09:00 Pantoprazole (Protonix Tab) 40 mg DAILY@06 PO Last administered on 02/22/19at 06:03; Admin Dose 40 MG; Start 02/22/19 at 06:00 Miscellaneous Information 1 ea NOTE XX ; Start 02/21/19 at 17:00 Glucose (Glutose) 15 gm Q15M PRN PO DECREASED GLUCOSE; Start 02/21/19 at 17:00 Glucose (Glutose) 22.5 gm Q15M PRN PO DECREASED GLUCOSE; Start 02/21/19 at 17:00 Dextrose (D50w Syringe) 25 ml Q15M PRN IV DECREASED GLUCOSE; Start 02/21/19 at 17:00 Dextrose (D50w Syringe) 50 ml Q15M PRN IV DECREASED GLUCOSE; Start 02/21/19 at 17:00 Glucagon (Glucagen) 1 mg Q15M PRN IM DECREASED GLUCOSE; Start 02/21/19 at 17:00 Glucose (Glutose) 15 gm Q15M PRN BUCCAL DECREASED GLUCOSE; Start 02/21/19 at 17:00 Diagnostic Test (Pha) (Accu-Chek) 1 ea 02 XX Last administered on 02/22/19at 02:00; Admin Dose 1 EA; Start 02/22/19 at 02:00 Insulin Aspart (Novolog Insulin Pen) NOVOLOG *MILD* ALGORITHM WITH MEALS BEDTIME SC Last administered on 02/22/19at 13:08; Admin Dose 3 UNIT; Start 02/21/19 at 17:55 Acetaminophen/ Hydrocodone Bitart ([place] (10/325)) 1 tab Q4H PRN PO MODERATE PAIN LEVEL 4-6; Start 02/21/19 at 18:10 Diagnostic Test (Pha) (Accu-Chek) 1 ea 02 XX Last administered on 02/22/19at 0 2:02; Admin Dose 1 EA; Start 02/21/19 at 19:30 Morphine Sulfate (morphine) 4 mg Q4H PRN IV SEVERE PAIN LEVEL 7-10 Last administered on 02/22/19at 06:01; Admin Dose 4 MG; Start 02/21/19 at 22:30 Enoxaparin Sodium (Lovenox) 40 mg DAILY SC Last administered on 02/22/19at 08:52; Admin Dose 40 MG; Start 02/22/19 at 09:00 Andrew Ferguson DO Feb 22, 2019 13:36
[2019-02-22 14:31] VITALS: BP 131/70; PULSE 86; RESP 18
--- NOTE | 2019-02-22 15:35 | RADRPT ---
Vent Rate: 77 bpm RR Interval: 776 msec MA Interval: 142 msec QRS Duration: 96 msec QT Interval: 389 msec QTC Interval: 442 msec P-R-T [place]: 49 - -9 - 58 degrees Sinus rhythm...normal P axis, V-rate 50- 99 Electronically Signed By: Andrew Ferguson
[2019-02-22 19:58] VITALS: BP 130/68; PULSE 88; RESP 20
[2019-02-22] MEDS: ATORVASTATIN 40 MG TAB PO SCH (21:18)
[2019-02-22] MEDS: INSULIN GLARGINE [LANTus] (100 UNITS/ML) SYG SC SCH (21:26)
[2019-02-23] VITALS (30 sets, daily range): BP systolic 103–162; BP diastolic 54–85; PULSE 66–109; RESP 16–27
[2019-02-23] MEDS: morphine 4 MG/ML VIAL IV PRN ×2 (00:59→06:34)
[2019-02-23] MEDS: ACCU-CHEK XX SCH (02:00)
[2019-02-23] MEDS: ACCUCHECK 2 AM XX SCH (02:00)
[2019-02-23] MEDS: PANTOPRAZOLE (EC) 40 MG TAB PO SCH (06:34)
[2019-02-23] MEDS: LEVOTHYROXINE 100 MCG TAB PO SCH (06:34)
[2019-02-23] MEDS: metFORMIN 500 MG TAB PO SCH ×2 (07:50→20:00)
[2019-02-23] MEDS: INSULIN ASPART [NOVOLOG] 3 ML PEN SC SCH ×4 (07:50→20:58)
[2019-02-23] MEDS: MAGNESIUM OXIDE 400 MG TAB PO SCH ×2 (09:00→22:37)
[2019-02-23] MEDS: LINAGLIPTIN 5 MG TABLET PO SCH (09:00)
[2019-02-23] MEDS: ASPIRIN (EC) 81 MG TAB PO SCH (09:00)
[2019-02-23] MEDS: LISINOPRIL 20 MG TAB PO SCH ×2 (09:00→22:38)
[2019-02-23] MEDS: MULTIVITAMINS/MINERALS TAB PO SCH (09:00)
[2019-02-23] MEDS: CHOLECALCIFEROL 2,000 UNIT CAP PO SCH (09:00)
[2019-02-23] MEDS: ENOXAPARIN 40 MG/0.4 ML SYG SC SCH (09:00)
[2019-02-23] MEDS: PIOGLITAZONE 30 MG TAB PO SCH (09:00)
--- NOTE | 2019-02-23 09:53 | HPN ---
Date/Time of Note Date/Time of Note DATE: 02/23/19 TIME: 09:52 Interval H&P Admission Note Pt. seen H&P reviewed: No system changes JULISSA PRITCHETT MD Feb 23, 2019 09:53
--- NOTE | 2019-02-23 10:46 | PREAC ---
Date/Time of Note Date/Time of Note DATE: 02/23/19 TIME: 10:44 Anesthesia Eval and Record Evaluation Time Pre-Procedure Interview DATE: 02/23/19 TIME: 10:44 Age 53 Sex female NPO: 8 hrs Preoperative diagnosis right distal humerus fracture Planned procedure orif right humerus fracture Past Medical History Past Medical History: Includes Cardio: HTN Endo: Diabetes, Hypothyroid Neuro: CVA GI: Morbid obesity Surgery & Anesthesia Issues No known issue Meds Anticoagulation: No Beta Andria within 24 hr: No Reason Beta Andria not given: Pt. not on B-Andria Reported Medications Insulin Glargine* (Lantus*) 100 Unit/Ml Soln, 70 UNIT SC QHS, #1 VIAL 02/21/19 Pioglitazone Hcl* (Pioglitazone Hcl*) 30 Mg Tablet, 30 MG PO DAILY, TAB 02/21/19 Ranitidine Hcl* (Ranitidine Hcl*) 300 Mg Tablet, 300 MG PO HS, #30 TAB 02/21/19 Linagliptin (TRADJENTA) 5 Mg Tablet, 5 MG PO DAILY, TAB 02/21/19 Cholecalciferol (Vitamin D3) (VITAMIN D-3) 2,000 Unit Capsule, 2000 UNIT PO DAILY, CAP 02/21/19 Aspirin* (Aspirin* EC) 81 Mg Tablet.dr, 81 MG PO DAILY, TAB 02/21/19 Levothyroxine Sodium* (Levothyroxine Sodium*) 200 Mcg Tablet, 200 MCG PO BEFORE BREAKFAST, #30 TAB 02/21/19 Omeprazole* (Omeprazole*) 40 Mg Capsule.dr, 40 MG PO DAILY, #30 CAP 02/21/19 Glimepiride* (Glimepiride*) 4 Mg Tablet, 4 MG PO WITH BREAKFAST DINNE, TAB 02/21/19 Metformin Hcl* (Metformin Hcl*) 1,000 Mg Tablet, 1000 MG PO WITH BREAKFAST DINNE, #60 TAB 02/21/19 Mv-Mn/FA/Vit K/Lycop/Lut/Coq10 (Daily Multivitamin Capsule) 1 Each Capsule, 1 EACH PO DAILY, CAP 02/21/19 Atorvastatin* (Atorvastatin*) 40 Mg Tablet, 40 MG PO QHS, #30 TAB 02/21/19 Lisinopril* (Lisinopril*) 40 Mg Tablet, 40 MG PO BID, #30 TAB 02/21/19 Magnesium Oxide* (Magnesium Oxide*) 400 Mg Tablet, 400 MG PO BID, TAB 02/21/19 Discontinued Reported Medications Pioglitazone Hcl* (Actos*) 30 Mg Tablet, 30 MG PO DAILY, #30 TAB 02/07/18 Insulin Glargine* (Lantus*) 100 Unit/Ml Soln, 70 UNIT SC BID, #1 VIAL 02/07/18 Ranitidine Hcl* (Ranitidine Hcl*) 300 Mg Tablet, 300 MG PO HS, #30 TAB 02/07/18 Cholecalciferol* (Vitamin D3*) 1,000 Unit Tablet, 1000 UNIT PO DAILY, TAB 02/07/18 Atorvastatin* (Atorvastatin*) 40 Mg Tablet, 40 MG PO QHS, #30 TAB 02/07/18 Sitagliptin* (Januvia*) 100 Mg Tablet, 100 MG PO DAILY, #30 TAB 02/07/18 Omeprazole* (Omeprazole*) 40 Mg Capsule.dr, 40 MG PO AC BREAKFAST, #30 CAP 02/07/18 Aspirin* (Aspirin* Chew) 81 Mg Tab.chew, 81 MG PO DAILY, TAB.CHEW 02/07/18 Levothyroxine Sodium* (Levothyroxine Sodium*) 200 Mcg Tablet, 200 MCG PO BEFORE BREAKFAST, #30 TAB 02/07/18 Glimepiride* (Glimepiride*) 4 Mg Tablet, 4 MG PO WITH BREAKFAST DINNE, TAB 02/07/18 Magnesium Oxide* (Magnesium Oxide*) 400 Mg Tablet, 400 MG PO BID, TAB 02/07/18 Metformin* (Glucophage*) 1,000 Mg Tablet, 1000 MG PO BID, #60 TAB 02/07/18 Lisinopril* (Lisinopril*) 40 Mg Tablet, 40 MG PO BID, #30 TAB 02/07/18 Discontinued Scripts Benzonatate* (Tessalon Perle*) 100 Mg Capsule, 100 MG PO Q8H PRN for COUGH, #30 CAP Prov:RALEIGH WOODARD PA-C 10/21/18 Promethazine Hcl* (Promethazine Hcl* Syrup) 6.25 Mg/5 Ml Syrup, 6.25 MG PO Q6H PRN for COUGH, #100 ML Prov:RALEIGH WOODARD PA-C 10/21/18 Azithromycin* (Zithromax*) 250 Mg Tablet, 250 MG PO .JORGE DIRECTED, #6 TAB TAKE 500 MG (2 TABS) THE FIRST DAY THEN 250 MG (1 TAB) DAYS 2-5 Prov:RALEIGH WOODARD PA-C 10/21/18 Current Medications Aspirin (Halfprin) 81 mg DAILY PO Last administered on 02/22/19 08:45; Admin Dose 81 MG; Start 02/22/19 at 09:00 Atorvastatin Calcium (Lipitor) 40 mg QHS PO Last administered on 02/22/19 21:18; Admin Dose 40 MG; Start 02/21/19 at 21:00 Cholecalciferol (Vitamin D) 2,000 unit DAILY PO Last administered on 02/22/19 08:46; Admin Dose 2,000 UNIT; Start 02/22/19 at 09:00 Insulin Glargine (Lantus) 70 units QHS SC Last administered on 02/22/19 21:26; Admin Dose 70 UNITS; Start 02/21/19 at 21:00 Levothyroxine Sodium (Synthroid) 200 mcg BEFORE BREAKFAST PO Last administered on 02/23/19 06:34; Admin Dose 200 MCG; Start 02/22/19 at 07:00 Linagliptin (Tradjenta) 5 mg DAILY PO Last administered on 02/22/19 08:46; Admin Dose 5 MG; Start 02/22/19 at 09:00 Lisinopril (Zestril) 40 mg BID PO Last administered on 02/22/19 21:18; Admin Dose 40 MG; Start 02/21/19 at 21:00 Magnesium Oxide (Mag-Ox 400) 400 mg BID PO Last administered on 02/22/19 21:18; Admin Dose 400 MG; Start 02/21/19 at 21:00 Metformin HCl (Glucophage) 1,000 mg WITH BREAKFAST DINNE PO Last administered on 02/22/19 17:41; Admin Dose 1,000 MG; Start 02/21/19 at 17:55 Pioglitazone HCl (Actos) 30 mg DAILY PO Last administered on 02/22/19 08:45; Admin Dose 30 MG; Start 02/22/19 at 09:00 Multivitamins/ Minerals (Theragran-M) 1 tab DAILY PO Last administered on 02/22/19 08:46; Admin Dose 1 TAB; Start 02/22/19 at 09:00 Pantoprazole (Protonix Tab) 40 mg DAILY@06 PO Last administered on 02/23/19at 06:34; Admin Dose 40 MG; Start 02/22/19 at 06:00 Miscellaneous Information 1 ea NOTE XX ; Start 02/21/19 at 17:00 Glucose (Glutose) 15 gm Q15M PRN PO DECREASED GLUCOSE; Start 02/21/19 at 17:00 Glucose (Glutose) 22.5 gm Q15M PRN PO DECREASED GLUCOSE; Start 02/21/19 at 17:00 Dextrose (D50w Syringe) 25 ml Q15M PRN IV DECREASED GLUCOSE; Start 02/21/19 at 17:00 Dextrose (D50w Syringe) 50 ml Q15M PRN IV DECREASED GLUCOSE; Start 02/21/19 at 17:00 Glucagon (Glucagen) 1 mg Q15M PRN IM DECREASED GLUCOSE; Start 02/21/19 at 17:00 Glucose (Glutose) 15 gm Q15M PRN BUCCAL DECREASED GLUCOSE; Start 02/21/19 at 17:00 Diagnostic Test (Pha) (Accu-Chek) 1 ea 02 XX Last administered on 02/22/19at 02:00; Admin Dose 1 EA; Start 02/22/19 at 02:00 Insulin Aspart (Novolog Insulin Pen) NOVOLOG *MILD* ALGORITHM WITH MEALS BEDTIME SC Last administered on 02/22/19at 17:40; Admin Dose 2 UNIT; Start 02/21 at 17:55 Acetaminophen/ Hydrocodone Bitart ([place] (10/325)) 1 tab Q4H PRN PO MODERATE PAIN LEVEL 4-6; Start 02/21/19 at 18:10 Diagnostic Test (Pha) (Accu-Chek) 1 ea 02 XX Last administered on 02/22/19at 02:02; Admin Dose 1 EA; Start 02/21/19 at 19:30 Morphine Sulfate (morphine) 4 mg Q4H PRN IV SEVERE PAIN LEVEL 7-10 Last administered on 02/23/19at 06:34; Admin Dose 4 MG; Start 02/21/19 at 22:30 Enoxaparin Sodium (Lovenox) 40 mg DAILY SC Last administered on 02/22/19at 08:52; Admin Dose 40 MG; Start 7/3/19 at 09:00 Meds reviewed: Yes Allergies Coded Allergies: No Known Allergy (Unverified , 02/21/19) Allergies Reviewed: Yes Labs/Studies Labs Reviewed: Reviewed by anesthesiologist Result Diagram: 02/23/19 0936 02/21/19 1019 Laboratory Tests 02/23/19 09:36 test: Negative Studies: ECG, CXR Pre-procedure Exam Last vitals Vital Signs Date Temp Pulse Resp B/P (MAP) Pulse Ox O2 O2 Flow FiO2 Time Delivery Rate 02/23/19 98.7 66 18 124/59 90 07:14 (80) 02/23/19 Room Air 06:26 Airway: Adequate mouth opening, Adequate thyromental dist Mallampati: Mallampati II Teeth: Normal Lung: Normal Heart: Normal ASA Physical Status ASA physical status: 3 Emergency: None Planned Anesthetic General/MAC: ETT Nerve block: Brachial plexus (right) Planned Pain Management Single shot nerve block, Parenteral pain med Pre-operative Attestations Prior to commencing anesthesia and surgery, the patient was re-evaluated, there was verification of: *The patient's identity *The results of appropriate recent lab work and preoperative vital signs *The above evaluation not changing prior to induction *Anesthetic plan, risk benefits, alternative and complications discussed with patient/family; questions answered; patient/family understands, accepts and wishes to proceed. AZAM BURK Feb 23, 2019 10:46
--- NOTE | 2019-02-23 11:37 | PREAC ---
Date/Time of Note Date/Time of Note DATE: 02/23/19 TIME: 11:36 Anesthesia Eval and Record Evaluation Time Pre-Procedure Interview DATE: 02/23/19 TIME: 11:36 Age 53 Sex female NPO: 8 hrs Preoperative diagnosis right distal humerus fracture Planned procedure ORIF right humerus fracture Past Medical History Past Medical History: Includes Cardio: HTN, Dyslipidemia, [place], CAD Endo: Diabetes, Hypothyroid Neuro: CVA GI: Morbid obesity Surgery & Anesthesia Issues No known issue Meds Anticoagulation: No Beta Andria within 24 hr: No Reason Beta Andria not given: Pt. not on B-Andria Reported Medications Insulin Glargine* (Lantus*) 100 Unit/Ml Soln, 70 UNIT SC QHS, #1 VIAL 02/21/19 Pioglitazone Hcl* (Pioglitazone Hcl*) 30 Mg Tablet, 30 MG PO DAILY, TAB 02/21/19 Ranitidine Hcl* (Ranitidine Hcl*) 300 Mg Tablet, 300 MG PO HS, #30 TAB 02/21/19 Linagliptin (TRADJENTA) 5 Mg Tablet, 5 MG PO DAILY, TAB 02/21/19 Cholecalciferol (Vitamin D3) (VITAMIN D-3) 2,000 Unit Capsule, 2000 UNIT PO DAILY, CAP 02/21/19 Aspirin* (Aspirin* EC) 81 Mg Tablet.dr, 81 MG PO DAILY, TAB 02/21/19 Levothyroxine Sodium* (Levothyroxine Sodium*) 200 Mcg Tablet, 200 MCG PO BEFORE BREAKFAST, #30 TAB 02/21/19 Omeprazole* (Omeprazole*) 40 Mg Capsule.dr, 40 MG PO DAILY, #30 CAP 02/21/19 Glimepiride* (Glimepiride*) 4 Mg Tablet, 4 MG PO WITH BREAKFAST DINNE, TAB 02/21/19 Metformin Hcl* (Metformin Hcl*) 1,000 Mg Tablet, 1000 MG PO WITH BREAKFAST DINNE, #60 TAB 02/21/19 Mv-Mn/FA/Vit K/Lycop/Lut/Coq10 (Daily Multivitamin Capsule) 1 Each Capsule, 1 EACH PO DAILY, CAP 02/21/19 Atorvastatin* (Atorvastatin*) 40 Mg Tablet, 40 MG PO QHS, #30 TAB 02/21/19 Lisinopril* (Lisinopril*) 40 Mg Tablet, 40 MG PO BID, #30 TAB 02/21/19 Magnesium Oxide* (Magnesium Oxide*) 400 Mg Tablet, 400 MG PO BID, TAB 02/21/19 Discontinued Reported Medications Pioglitazone Hcl* (Actos*) 30 Mg Tablet, 30 MG PO DAILY, #30 TAB 02/07/18 Insulin Glargine* (Lantus*) 100 Unit/Ml Soln, 70 UNIT SC BID, #1 VIAL 02/07/18 Ranitidine Hcl* (Ranitidine Hcl*) 300 Mg Tablet, 300 MG PO HS, #30 TAB 02/07/18 Cholecalciferol* (Vitamin D3*) 1,000 Unit Tablet, 1000 UNIT PO DAILY, TAB 02/07/18 Atorvastatin* (Atorvastatin*) 40 Mg Tablet, 40 MG PO QHS, #30 TAB 02/07/18 Sitagliptin* (Januvia*) 100 Mg Tablet, 100 MG PO DAILY, #30 TAB 02/07/18 Omeprazole* (Omeprazole*) 40 Mg Capsule.dr, 40 MG PO AC BREAKFAST, #30 CAP 02/07/18 Aspirin* (Aspirin* Chew) 81 Mg Tab.chew, 81 MG PO DAILY, TAB.CHEW 02/07/18 Levothyroxine Sodium* (Levothyroxine Sodium*) 200 Mcg Tablet, 200 MCG PO BEFORE BREAKFAST, #30 TAB 02/07/18 Glimepiride* (Glimepiride*) 4 Mg Tablet, 4 MG PO WITH BREAKFAST DINNE, TAB 02/07/18 Magnesium Oxide* (Magnesium Oxide*) 400 Mg Tablet, 400 MG PO BID, TAB 02/07/18 Metformin* (Glucophage*) 1,000 Mg Tablet, 1000 MG PO BID, #60 TAB 02/07/18 Lisinopril* (Lisinopril*) 40 Mg Tablet, 40 MG PO BID, #30 TAB 02/07/18 Discontinued Scripts Benzonatate* (Tessalon Perle*) 100 Mg Capsule, 100 MG PO Q8H PRN for COUGH, #30 CAP Prov:RALEIGH WOODARD PA-C 10/21/18 Promethazine Hcl* (Promethazine Hcl* Syrup) 6.25 Mg/5 Ml Syrup, 6.25 MG PO Q6H PRN for COUGH, #100 ML Prov:RALEIGH WOODARD PA-C 10/21/18 Azithromycin* (Zithromax*) 250 Mg Tablet, 250 MG PO .JORGE DIRECTED, #6 TAB TAKE 500 MG (2 TABS) THE FIRST DAY THEN 250 MG (1 TAB) DAYS 2-5 Prov:RALEIGH WOODARD PA-C 10/21/18 Current Medications Aspirin (Halfprin) 81 mg DAILY PO Last administered on 02/22/19 08:45; Admin Dose 81 MG; Start 02/22/19 at 09:00 Atorvastatin Calcium (Lipitor) 40 mg QHS PO Last administered on 02/22/19 21:18; Admin Dose 40 MG; Start 02/21/19 at 21:00 Cholecalciferol (Vitamin D) 2,000 unit DAILY PO Last administered on 02/22/19 08:46; Admin Dose 2,000 UNIT; Start 02/22/19 at 09:00 Insulin Glargine (Lantus) 70 units QHS SC Last administered on 02/22/19 21:26; Admin Dose 70 UNITS; Start 02/21/19 at 21:00 Levothyroxine Sodium (Synthroid) 200 mcg BEFORE BREAKFAST PO Last administered on 02/23/19 06:34; Admin Dose 200 MCG; Start 02/22/19 at 07:00 Linagliptin (Tradjenta) 5 mg DAILY PO Last administered on 02/22/19 08:46; Admi n Dose 5 MG; Start 02/22/19 at 09:00 Lisinopril (Zestril) 40 mg BID PO Last administered on 02/22/19 21:18; Admin Dose 40 MG; Start 02/21/19 at 21:00 Magnesium Oxide (Mag-Ox 400) 400 mg BID PO Last administered on 02/22/19 21:18; Admin Dose 400 MG; Start 02/21/19 at 21:00 Metformin HCl (Glucophage) 1,000 mg WITH BREAKFAST DINNE PO Last administered on 02/22/19 17:41; Admin Dose 1,000 MG; Start 02/21/19 at 17:55 Pioglitazone HCl (Actos) 30 mg DAILY PO Last administered on 02/22/19 08:45; Admin Dose 30 MG; Start 02/22/19 at 09:00 Multivitamins/ Minerals (Theragran-M) 1 tab DAILY PO Last administered on 7/3/19at 08:46; Admin Dose 1 TAB; Start 02/22/19 at 09:00 Pantoprazole (Protonix Tab) 40 mg DAILY@06 PO Last administered on 02/23/19at 06:34; Admin Dose 40 MG; Start 02/22/19 at 06:00 Miscellaneous Information 1 ea NOTE XX ; Start 02/21/19 at 17:00 Glucose (Glutose) 15 gm Q15M PRN PO DECREASED GLUCOSE; Start 02/21/19 at 17:00 Glucose (Glutose) 22.5 gm Q15M PRN PO DECREASED GLUCOSE; Start 02/21/19 at 17:00 Dextrose (D50w Syringe) 25 ml Q15M PRN IV DECREASED GLUCOSE; Start 02/21/19 at 17:00 Dextrose (D50w Syringe) 50 ml Q15M PRN IV DECREASED GLUCOSE; Start 02/21/19 at 17:00 Glucagon (Glucagen) 1 mg Q15M PRN IM DECREASED GLUCOSE; Start 02/21/19 at 17:00 Glucose (Glutose) 15 gm Q15M PRN BUCCAL DECREASED GLUCOSE; Start 02/21/19 at 17:00 Diagnostic Test (Pha) (Accu-Chek) 1 ea 02 XX Last administered on 02/22/19at 02:00; Admin Dose 1 EA; Start 02/22/19 at 02:00 Insulin Aspart (Novolog Insulin Pen) NOVOLOG *MILD* ALGORITHM WITH MEALS BEDTIME SC Last administered on 02/22/19at 17:40; Admin Dose 2 UNIT; Start 02/21/19 at 17:55 Acetaminophen/ Hydrocodone Bitart ([place] (10/325)) 1 tab Q4H PRN PO MODERATE PAIN LEVEL 4-6; Start 02/21/19 at 18:10 Diagnostic Test (Pha) (Accu-Chek) 1 ea 02 XX Last administered on 02/22/19at 02:02; Admin Dose 1 EA; Start 02/21/19 at 19:30 Morphine Sulfate (morphine) 4 mg Q4H PRN IV SEVERE PAIN LEVEL 7-10 Last administered on 02/23/19at 06:34; Admin Dose 4 MG; Start 02/21/19 at 22:30 Enoxaparin Sodium (Lovenox) 40 mg DAILY SC Last administered on 02/22/19at 08:52; Admin Dose 40 MG; Start 02/22/19 at 09:00 Meds reviewed: Yes Allergies Coded Allergies: No Known Allergy (Unverified , 02/21/19) Allergies Reviewed: Yes Labs/Studies Labs Reviewed: Reviewed by anesthesiologist Result Diagram: 02/23/19 0936 02/21/19 1019 Laboratory Tests 02/23/19 09:36 test: Negative Studies: ECG, CXR, 2D Echo Pre-procedure Exam Last vitals Vital Signs Date Temp Pulse Resp B/P (MAP) Pulse Ox O2 O2 Flow FiO2 Time Delivery Rate 02/23/19 98.7 66 18 124/59 90 07:14 (80) 02/23/19 Room Air 06:26 Airway: Adequate mouth opening, Adequate thyromental dist Mallampati: Mallampati II Teeth: Normal Lung: Normal Heart: Normal ASA Physical Status ASA physical status: 3 Emergency: None Planned Anesthetic General/MAC: ETT (vs. ), LMA Nerve block: Brachial plexus (right) Planned Pain Management Single shot nerve block, Parenteral pain med Pre-operative Attestations Prior to commencing anesthesia and surgery, the patient was re-evaluated, there was verification of: *The patient's identity *The results of appropriate recent lab work and preoperative vital signs *The above evaluation not changing prior to induction *Anesthetic plan, risk benefits, alternative and complications discussed with patient/family; questions answered; patient/family understands, accepts and wishes to proceed. SIL HYDE MD Feb 23, 2019 11:37
[2019-02-23] MEDS ORDERED: LABETALOL HCL 20MG INJ IV PRN (12:00)
[2019-02-23] MEDS ORDERED: ONDANSETRON 4 MG INJ IV PRN (12:00)
[2019-02-23] MEDS ORDERED: PROCHLORPERAZINE 10 MG INJ IV PRN (12:00)
[2019-02-23] MEDS ORDERED: HYDROmorphONE 1 MG/5 ML IV SYRINGE IV PRN ×3 (12:00)
[2019-02-23] MEDS ORDERED: FENTAnyl 50 MCG/ML VIAL IV PRN (12:00)
[2019-02-23] MEDS ORDERED: hydrALAzine 20 MG INJ IV PRN (12:00)
[2019-02-23] MEDS ORDERED: MEPERIDINE 25 MG INJ IV PRN (12:00)
[2019-02-23] MEDS ORDERED: DIPHENHYDRAMINE 50 MG INJ IV PRN (12:00)
--- NOTE | 2019-02-23 12:01 | PN ---
Date/Time of Note Date/Time of Note DATE: 02/23/19 TIME: 11:58 Assessment/Plan [place] [facility] [place]: 6 [place] [facility] [place] Pharmacological prophylaxis: NA/contraindicated Pharm contraindication: surgical contra Lines/Catheters IV [facility]from [facility] [place] Urinary Cath still in place: No Assessment/Plan Hospital Course Patient is taken to OR for ORIF for R humerus. No acute events reported prior to procedure. D/W ALEAH Pineda. Assessment/Plan -Closed fracture of right distal humerus. Dr. Merrill is following in orthopedic surgery consultation. Pending ORIF R humerus. S/p evaluation by Dr. Ferguson in cardiology consultation, cleared for surgery. -Abrasion, left knee, continue local care. -Abrasion of face, continue local care. -Diabetes, continue Tradjenta Actos Lantus and NovoLog -Hypertension, continue lisinopril -Hypothyroidism, continue levothyroxine -Morbid obesity with BMI of 42 -History of minor stroke, continue aspirin -History of CO according to the patient Further recommendations based on clinical course. Plan of care discussed with Dr. Paige. Result Diagram: 02/23/19 0936 02/21/19 1019 Results 24hrs Laboratory Tests Test 02/22/19 13:00 02/22/19 17:36 02/22/19 21:23 02/23/19 08:37 Bedside Glucose 257 H 207 175 201 Test 02/23/19 09:36 White Blood Count 5.8 Red Blood Count 4.18 L Hemoglobin 11.1 L Hematocrit 35.6 L Mean Corpuscular Volume 85.2 Mean Corpuscular 26.6 L Hemoglobin Mean Corpuscular 31.2 L Hemoglobin Concent Red Cell Distribution 17.5 H Width Platelet Count 181 Mean Platelet Volume 11.2 H Immature Granulocytes % 0.500 H Neutrophils % 76.5 Lymphocytes % 13.0 L Monocytes % 8.8 Eosinophils % 1.0 Basophils % 0.2 Nucleated Red Blood 0.0 Cells % Immature Granulocytes # 0.030 Neutrophils # 4.4 Lymphocytes # 0.8 Monocytes # 0.5 Eosinophils # 0.1 Basophils # 0.0 Nucleated Red Blood 0.0 Cells # Exam/Review of Systems Exam Vitals Vital Signs Date Temp Pulse Resp B/P (MAP) Pulse Ox O2 O2 Flow FiO2 Time Delivery Rate 7/4/19 98.7 66 18 124/59 90 07:14 (80) 02/23/19 Room Air 06:26 Intake and Output 02/22/19 02/22/19 02/23/19 1515:00 23:00 07:00 IntakeIntake Total 600 ml 240 ml 280 ml OutputOutput Total 80 ml BalanceBalance 600 ml 240 ml 200 ml Results Results 24hrs Laboratory Tests Test 02/22/19 13:00 02/22/19 17:36 02/22/19 21:23 02/23/19 08:37 Bedside Glucose 257 H 207 175 201 Test 02/23/19 09:36 White Blood Count 5.8 Red Blood Count 4.18 L Hemoglobin 11.1 L Hematocrit 35.6 L Mean Corpuscular Volume 85.2 Mean Corpuscular 26.6 L Hemoglobin Mean Corpuscular 31.2 L Hemoglobin Concent Red Cell Distribution 17.5 H Width Platelet Count 181 Mean Platelet Volume 11.2 H Immature Granulocytes % 0.500 H Neutrophils % 76.5 Lymphocytes % 13.0 L Monocytes % 8.8 Eosinophils % 1.0 Basophils % 0.2 Nucleated Red Blood 0.0 Cells % Immature Granulocytes # 0.030 Neutrophils # 4.4 Lymphocytes # 0.8 Monocytes # 0.5 Eosinophils # 0.1 Basophils # 0.0 Nucleated Red Blood 0.0 Cells # Medications Medication Current Medications Aspirin (Halfprin) 81 mg DAILY PO Last administered on 02/22/19 08:45; Admin Dose 81 MG; Start 02/22/19 at 09:00; Status Hold Atorvastatin Calcium (Lipitor) 40 mg QHS PO Last administered on 02/22/19 21:18; Admin Dose 40 MG; Start 02/21/19 at 21:00 Cholecalciferol (Vitamin D) 2,000 unit DAILY PO Last administered on 02/22/19 08:46; Admin Dose 2,000 UNIT; Start 02/22/19 at 09:00 Insulin Glargine (Lantus) 70 units QHS SC Last administered on 02/22/19 21:26; Admin Dose 70 UNITS; Start 02/21/19 at 21:00 Levothyroxine Sodium (Synthroid) 200 mcg BEFORE BREAKFAST PO Last administered on 02/23/19 06:34; Admin Dose 200 MCG; Start 02/22/19 at 07:00 Linagliptin (Tradjenta) 5 mg DAILY PO Last administered on 02/22/19 08:46; Admi n Dose 5 MG; Start 02/22/19 at 09:00 Lisinopril (Zestril) 40 mg BID PO Last administered on 02/22/19 21:18; Admin Dose 40 MG; Start 02/21/19 at 21:00 Magnesium Oxide (Mag-Ox 400) 400 mg BID PO Last administered on 02/22/19 21:18; Admin Dose 400 MG; Start 02/21/19 at 21:00 Metformin HCl (Glucophage) 1,000 mg WITH BREAKFAST DINNE PO Last administered on 02/22/19 17:41; Admin Dose 1,000 MG; Start 02/21/19 at 17:55 Pioglitazone HCl (Actos) 30 mg DAILY PO Last administered on 02/22/19at 08:45; Admin Dose 30 MG; Start 02/22/19 at 09:00 Multivitamins/ Minerals (Theragran-M) 1 tab DAILY PO Last administered on 02/22/19at 08:46; Admin Dose 1 TAB; Start 02/22/19 at 09:00 Pantoprazole (Protonix Tab) 40 mg DAILY@06 PO Last administered on 02/23/19at 06:34; Admin Dose 40 MG; Start 02/22/19 at 06:00 Miscellaneous Information 1 ea NOTE XX ; Start 02/21/19 at 17:00 Glucose (Glutose) 15 gm Q15M PRN PO DECREASED GLUCOSE; Start 02/21/19 at 17:00 Glucose (Glutose) 22.5 gm Q15M PRN PO DECREASED GLUCOSE; Start 02/21/19 at 17:00 Dextrose (D50w Syringe) 25 ml Q15M PRN IV DECREASED GLUCOSE; Start 02/21/19 at 17:00 Dextrose (D50w Syringe) 50 ml Q15M PRN IV DECREASED GLUCOSE; Start 02/21/19 at 17:00 Glucagon (Glucagen) 1 mg Q15M PRN IM DECREASED GLUCOSE; Start 02/21/19 at 17:00 Glucose (Glutose) 15 gm Q15M PRN BUCCAL DECREASED GLUCOSE; Start 02/21/19 at 17:00 Diagnostic Test (Pha) (Accu-Chek) 1 ea 02 XX Last administered on 7/3/19at 02:00; Admin Dose 1 EA; Start 02/22/19 at 02:00 Insulin Aspart (Novolog Insulin Pen) NOVOLOG *MILD* ALGORITHM WITH MEALS BEDTIME SC Last administered on 02/22/19 17:40; Admin Dose 2 UNIT; Start 02/21/19 at 17:55 Acetaminophen/ Hydrocodone Bitart ([place] (10)) 1 tab Q4H PRN PO MODERATE PAIN LEVEL 4-6; Start 02/21/19 at 18:10 Diagnostic Test (Pha) (Accu-Chek) 1 ea 02 XX Last administered on 02/22/19 02:02; Admin Dose 1 EA; Start 02/21/19 at 19:30 Morphine Sulfate (morphine) 4 mg Q4H PRN IV SEVERE PAIN LEVEL 7-10 Last administered on 02/23/19 06:34; Admin Dose 4 MG; Start 02/21/19 at 22:30 Enoxaparin Sodium (Lovenox) 40 mg DAILY SC Last administered on 02/22/19 08:52; Admin Dose 40 MG; Start 02/22/19 at 09:00; Status Hold Hydromorphone HCl (Dilaudid) 0.2 mg PACU PRN IV MILD PAIN 1-3; Start 02/23/19 at 12:00; Stop 02/23/19 at 19:00 Hydromorphone HCl (Dilaudid) 0.4 mg PACU PRN IV MOD PAIN 4-6; Start 02/23/19 at 12:00; Stop 02/23/19 at 19:00 Hydromorphone HCl (Dilaudid) 0.6 mg PACU PRN IV SEVERE PAIN 7-10; Start 02/23/19 at 12:00; Stop 02/23/19 at 19:00 Fentanyl (Sublimaze) 25 mcg PACU ORDER PRN IV MILD PAIN 1-3; Start 02/23/19 at 12:00; Stop 02/23/19 at 19:00 Ondansetron HCl (Zofran Inj) 4 mg PACU ORDER PRN IV NAUSEA/VOMITING; Start 02/23/19 at 12:00; Stop 02/23/19 at 19:00 Prochlorperazine (Compazine Inj) 5 mg PACU ORDER PRN IV NAUSEA/VOMITING; Start 02/23/19 at 12:00; Stop 02/23/19 at 19:00 Labetalol HCl (Labetalol) 5 mg PACU ORDER PRN IV HIGH BLOOD PRESSURE; Start 02/23/19 at 12:00; Stop 02/23/19 at 19:00 Hydralazine HCl (Apresoline) 5 mg PACU ORDER PRN IV HIGH BLOOD PRESSURE; Start 02/23/19 at 12:00; Stop 02/23/19 at 19:00 Meperidine HCl (Demerol) 25 mg PACU ORDER PRN IV .RIGORS; Start 02/23/19 at 12:00; Stop 02/23/19 at 19:00 Diphenhydramine HCl (Benadryl) 25 mg PACU ORDER PRN IV .PRURITUS; Start 02/23/19 at 12:00; Stop 02/23/19 at 19:00 VICKI ZULUAGA Feb 23, 2019 12:01
[2019-02-23] MEDS ORDERED: SUCCINYLCHOLINE CHLORIDE 100 MG/5 ML SYG IV ONE (12:15)
[2019-02-23] MEDS ORDERED: LIDOCAINE 2% (SDV) 5 ML INJ ONE (12:15)
[2019-02-23] MEDS ORDERED: MIDAZOLAM 1 MG/ML 2 ML INJ ONE (12:15)
[2019-02-23] MEDS ORDERED: POLYMYXIN/BACITRACIN 1L IRRIG IRR ONE (13:10)
[2019-02-23] MEDS ORDERED: PROPOFOL 40 ML ONE (13:41)
[2019-02-23] MEDS ORDERED: CEFAZOLIN 1 GM INJ ONE ×2 (13:42→19:16)
[2019-02-23] MEDS ORDERED: FAMOTIDINE 20 MG INJ ONE (13:44)
[2019-02-23] MEDS ORDERED: ONDANSETRON 4 MG INJ ONE (13:44)
[2019-02-23] MEDS ORDERED: HYDROmorphONE 2 MG/ML SYG ONE (14:33)
[2019-02-23] MEDS ORDERED: ROCURONIUM 50 MG INJ ONE ×2 (14:37→14:39)
[2019-02-23] MEDS ORDERED: VANCOMYCIN 1 GM INJ ONE (17:33)
[2019-02-23] MEDS ORDERED: GLYCOPYRROLATE 0.4 MG INJ ONE (17:43)
[2019-02-23] MEDS ORDERED: NEOSTIGMINE 3 MG/3 ML SYRINGE ONE (17:43)
[2019-02-23] MEDS ORDERED: HYDROmorphONE 1 MG/ML SYG IV PRN (18:30)
[2019-02-23] MEDS ORDERED: NACL 0.9% 3 ML SYG IV SCH (18:30)
--- NOTE | 2019-02-23 18:51 | SIPON ---
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 of Right humerus fracture Surgeon see signature line ophthalmic surgical assistant none Anesthesia: general Estimated blood loss: 250 - 300 ml's Transfusion Required none Specimen none Grafts/Implants plate screws and cable Complications none JULISSA PRITCHETT MD Feb 23, 2019 18:48
--- NOTE | 2019-02-23 19:13 | PAC ---
Date/Time of Note Date/Time of Note DATE: 02/23/19 TIME: 19:12 Post-Anesthesia Notes Post-Anesthesia Note Last documented vital signs Vital Signs Date Temp Pulse Resp B/P (MAP) Pulse Ox O2 O2 Flow FiO2 Time Delivery Rate 02/23/19 98.7 66 18 124/59 90 07:14 (80) 02/23/19 Room Air 06:26 Activity: WNL Respiratory function: WNL Cardiovascular function: WNL Mental status: Baseline Pain reasonably controlled: Yes Hydration appropriate: Yes Nausea/Vomiting absent: Yes Comments BP: 112/56 HR: 88 RR: 16 T:97.8 SaO2: 99% SIL HYDE MD Feb 23, 2019 19:13
[2019-02-23] MEDS ORDERED: INSULIN ASPART [NOVOLOG] 3 ML PEN SC ONE (19:30)
--- NOTE | 2019-02-23 20:10 | OPR ---
DATE OF OPERATION: 02/23/2019 PREOPERATIVE DIAGNOSES: 1. Comminuted and displaced fracture involving the distal shaft of the right humerus. 2. Radial nerve palsy and possibly ulnar nerve palsy of the right upper extremity. POSTOPERATIVE DIAGNOSES: 1. Comminuted and displaced fracture involving the distal shaft of the right humerus. 2. Radial nerve palsy and possibly ulnar nerve palsy of the right upper extremity. 3. 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 PROCEDURES PERFORMED: 1. Exploration of the radial nerve and ulnar nerve at the fracture site and decompression of the rad ial nerve from entrapment at the fracture site. 2. Open reduction and internal fixation of the comminuted fracture of the distal shaft of the right humerus. ANESTHESIA: General anesthesia. SURGEON: Eduar Merrill MD PRECISION AGRICULTURE SPECIALIST: JUSTIN Trevino PROCEDURES AND FINDINGS: Preoperatively before the general anesthesia, the right upper extremity was examined again with the participation of the patient. After removing the splint with exposure of th e right upper extremity, neurological examination was carried out and she was showing signs of obviou s radial nerve palsy with inability to dorsiflex the right wrist along with numbness in the radial ne rve dermatome of the right upper extremity. In addition, she was not able to open and close the fing ers, suggesting that there is a compromise of the interosseous muscles, most probably from ulnar nerv e palsy, along with the numbness at the ulnar nerve dermatome. The patient was again informed of the presence of the radial nerve and possibly ulnar nerve compromis e. Under general anesthesia, the patient was placed in prone position with the right upper extremity ashley ging from the side of the OR table and after confirming the availability of AP and lateral view of th e distal femur throughout the procedure, the patient was prepped and draped in the usual fashion, exp osing the right upper extremity. A sterile tourniquet was then placed over the upper most portion of the right arm and was inflated to 250 mmHg prior to the procedure. The humeral shaft was exposed through the posterior longitudinal midline incision and further exposur e was carried out by biceps splitting dissection. It was discovered that there is a comminuted and d isplaced fracture with a large butterfly fragment. It was also noted that the fractured bone fragmen ts were protruding the soft tissue structures laterally and it was noted that there was a contusion o f the radial nerve, obviously, and it was partially entrapped between the fracture fragment. It was also noted that there are some branching of the radial nerve and one of the branching nerves seems to be nearly interrupted. After releasing the radial nerve, the ulnar nerve was also identified and ex amined and there was no obvious trauma identifiable over the radial nerve other than some signs of co ntusion. With some difficulties, the comminuted fracture of the humerus was clearly identified and f jesenia and then this was reduced and held reduced. The fracture was maintained in a reduced position b y placing multiple circumferential sutures using #1 PDS and this was internally fixed with the 12-hol e VariAx 2 plates for elbow and humerus. After the usual and internal fixation, additional 2 cable w as placed in the proximal portion of the plate and over the area of the fracture. After irrigation a nd hemostasis, closure of the incision was carried out using 0 Vicryl for muscle and fascia and 2-0 V icryl for subcutaneous tissues. Final skin closure was carried out with skin jamir. Postoperatively, a sling immobilization of the right upper extremity ____. Final skin closure was ca rried out with skin jamir. The area of incision was protected with usual sterile pressure dressings. The patient tolerated the entire procedure very well and was sent to the recovery room in excellent c ondition. Dictated By: EDUAR DUKE/NORA Conf#: [id number] DID#: [id number]
[2019-02-23] MEDS: SOD CHLORIDE 0.9% 1,000 ML IV SCH (20:41)
[2019-02-23] MEDS: INSULIN GLARGINE [LANTus] (100 UNITS/ML) SYG SC SCH (20:58)
[2019-02-23] MEDS: CEFAZOLIN 1 GM/50 ML (PMX) 50 ML IVPB SCH (22:35)
[2019-02-23] MEDS: ATORVASTATIN 40 MG TAB PO SCH (22:37)
[2019-02-24] VITALS: BP 123/60; PULSE 89; RESP 20
[2019-02-24] MEDS: ACCUCHECK 2 AM XX SCH (02:00)
[2019-02-24] MEDS: ACCU-CHEK XX SCH (02:00)
[2019-02-24] MEDS: SOD CHLORIDE 0.9% 1,000 ML IV SCH ×3 (04:04→18:41)
[2019-02-24] MEDS: CEFAZOLIN 1 GM/50 ML (PMX) 50 ML IVPB SCH ×2 (04:08→12:40)
[2019-02-24] MEDS: LEVOTHYROXINE 100 MCG TAB PO SCH (06:11)
[2019-02-24] MEDS: PANTOPRAZOLE (EC) 40 MG TAB PO SCH (06:11)
[2019-02-24 08:12] VITALS: BP 132/59; PULSE 87; RESP 18
[2019-02-24] MEDS: INSULIN ASPART [NOVOLOG] 3 ML PEN SC SCH ×4 (08:19→21:09)
[2019-02-24] MEDS: ENOXAPARIN 40 MG/0.4 ML SYG SC SCH (08:22)
[2019-02-24] MEDS: PIOGLITAZONE 30 MG TAB PO SCH (08:22)
[2019-02-24] MEDS: CHOLECALCIFEROL 2,000 UNIT CAP PO SCH (08:22)
[2019-02-24] MEDS: MULTIVITAMINS/MINERALS TAB PO SCH (08:23)
[2019-02-24] MEDS: ASPIRIN (EC) 81 MG TAB PO SCH (08:23)
[2019-02-24] MEDS: LISINOPRIL 20 MG TAB PO SCH ×2 (08:23→21:03)
[2019-02-24] MEDS: MAGNESIUM OXIDE 400 MG TAB PO SCH ×2 (08:23→21:02)
[2019-02-24] MEDS: LINAGLIPTIN 5 MG TABLET PO SCH (08:23)
[2019-02-24] MEDS: metFORMIN 500 MG TAB PO SCH ×2 (08:27→17:55)
--- NOTE | 2019-02-24 12:52 | PN ---
Date/Time of Note Date/Time of Note DATE: 02/24/19 TIME: 12:51 Assessment/Plan VTE Prophylaxis Risk score (from Nsg)>0 risk: 6 SCD applied (from Nsg): Yes Lines/Catheters IV Catheter Type (from Nrsg): Saline Lock Urinary Cath still in place: No Assessment/Plan Assessment/Plan -Closed fracture of right distal humerus. Dr. Merrill is following in orthopedic surgery consultation. Pending ORIF R humerus. S/p evaluation by Dr. Ferguson in cardiology consultation, cleared for surgery. -Abrasion, left knee, continue local care. -Abrasion of face, continue local care. - JOHNIE- Cr trended down today -Diabetes, continue Tradjenta Actos Lantus and NovoLog -Hypertension, continue lisinopril -Hypothyroidism, continue levothyroxine -Morbid obesity with BMI of 42 -History of minor stroke, continue aspirin -History of GA according to the patient Further recommendations based on clinical course. Plan of care discussed with Dr. Paige. Result Diagram: 02/24/19 0425 02/24/19 0425 Results 24hrs Laboratory Tests Test 02/23/19 19:11 02/23/19 19:15 02/23/19 20:52 02/24/19 02:01 Bedside Glucose 226 H 242 H 179 Urine NEGATIVE Test Test 02/24/19 04:25 02/24/19 07:10 02/24/19 08:00 02/24/19 12:36 White Blood Count 5.2 Red Blood Count 3.54 L Hemoglobin 9.6 L Hematocrit 30.4 L Mean Corpuscular 85.9 Volume Mean Corpuscular 27.1 L Hemoglobin Mean Corpuscular 31.6 L Hemoglobin Concent Red Cell 18.1 H Distribution Width Platelet Count 178 Mean Platelet 11.3 H Volume Immature 0.200 Granulocytes % Neutrophils % 79.0 H Lymphocytes % 7.1 L Monocytes % 13.3 H Eosinophils % 0.2 Basophils % 0.2 Nucleated Red Blood 0.0 Cells % Immature 0.010 Granulocytes # Neutrophils # 4.1 Lymphocytes # 0.4 L Monocytes # 0.7 Eosinophils # 0.0 Basophils # 0.0 Nucleated Red Blood 0.0 Cells # Sodium Level 141 Potassium Level 4.8 Chloride Level 109 Carbon Dioxide 25 Level Anion Gap 7 Blood Urea Nitrogen 25 H Creatinine 1.08 H Est Glomerular 53 L Filtrat Rate mL/min Glucose Level 153 Calcium Level 8.2 L Lab Scanned Report BLOOD TRANSFUSION Bedside Glucose 144 144 Exam/Review of Systems Exam Vitals Vital Signs Date Temp Pulse Resp B/P (MAP) Pulse Ox O2 O2 Flow FiO2 Time Delivery Rate 02/24/19 98.3 87 18 132/59 91 Room Air 08:12 (83) 02/24/19 2.0 00:00 Intake and Output 02/23/19 02/23/19 02/24/19 1414:59 22:59 06:59 IntakeIntake Total 3440 ml 1100 ml OutputOutput Total 750 ml BalanceBalance 2690 ml 1100 ml Results Results 24hrs Laboratory Tests Test 02/23/19 19:11 02/23/19 19:15 02/23/19 20:52 02/24/19 02:01 Bedside Glucose 226 H 242 H 179 Urine NEGATIVE Test Test 02/24/19 04:25 02/24/19 07:10 02/24/19 08:00 02/24/19 12:36 White Blood Count 5.2 Red Blood Count 3.54 L Hemoglobin 9.6 L Hematocrit 30.4 L Mean Corpuscular 85.9 Volume Mean Corpuscular 27.1 L Hemoglobin Mean Corpuscular 31.6 L Hemoglobin Concent Red Cell 18.1 H Distribution Width Platelet Count 178 Mean Platelet 11.3 H Volume Immature 0.200 Granulocytes % Neutrophils % 79.0 H Lymphocytes % 7.1 L Monocytes % 13.3 H Eosinophils % 0.2 Basophils % 0.2 Nucleated Red Blood 0.0 Cells % Immature 0.010 Granulocytes # Neutrophils # 4.1 Lymphocytes # 0.4 L Monocytes # 0.7 Eosinophils # 0.0 Basophils # 0.0 Nucleated Red Blood 0.0 Cells # Sodium Level 141 Potassium Level 4.8 Chloride Level 109 Carbon Dioxide 25 Level Anion Gap 7 Blood Urea Nitrogen 25 H Creatinine 1.08 H Est Glomerular 53 L Filtrat Rate mL/min Glucose Level 153 Calcium Level 8.2 L Lab Scanned Report BLOOD TRANSFUSION Bedside Glucose 144 144 Medications Medication Current Medications Aspirin (Halfprin) 81 mg DAILY PO Last administered on 02/24/19at 08:23; Admin Dose 81 MG; Start 02/22/19 at 09:00 Atorvastatin Calcium (Lipitor) 40 mg QHS PO Last administered on 02/23/19at 22:37; Admin Dose 40 MG; Start 02/21/19 at 21:00 Cholecalciferol (Vitamin D) 2,000 unit DAILY PO Last administered on 02/24/19 08:22; Admin Dose 2,000 UNIT; Start 02/22/19 at 09:00 Insulin Glargine (Lantus) 70 units QHS SC Last administered on 02/23/19 20:58; Admin Dose 70 UNITS; Start 02/21/19 at 21:00 Levothyroxine Sodium (Synthroid) 200 mcg BEFORE BREAKFAST PO Last administered on 02/24/19 06:11; Admin Dose 200 MCG; Start 02/22/19 at 07:00 Linagliptin (Tradjenta) 5 mg DAILY PO Last administered on 02/24/19 08:23; Admin Dose 5 MG; Start 02/22/19 at 09:00 Lisinopril (Zestril) 40 mg BID PO Last administered on 02/24/19 08:23; Admin Dose 40 MG; Start 02/21/19 at 21:00 Magnesium Oxide (Mag-Ox 400) 400 mg BID PO Last administered on 02/24/19 08:23; Admin Dose 400 MG; Start 02/21/19 at 21:00 Metformin HCl (Glucophage) 1,000 mg WITH BREAKFAST DINNE PO Last administered on 02/24/19 08:27; Admin Dose 1,000 MG; Start 02/21/19 at 17:55 Pioglitazone HCl (Actos) 30 mg DAILY PO Last administered on 02/24/19 08:22; Admin Dose 30 MG; Start 02/22/19 at 09:00 Multivitamins/ Minerals (Theragran-M) 1 tab DAILY PO Last administered on 02/24/19 08:23; Admin Dose 1 TAB; Start 02/22/19 at 09:00 Pantoprazole (Protonix Tab) 40 mg DAILY@06 PO Last administered on 02/24/19 06:11; Admin Dose 40 MG; Start 02/22/19 at 06:00 Miscellaneous Information 1 ea NOTE XX ; Start 02/21/19 at 17:00 Glucose (Glutose) 15 gm Q15M PRN PO DECREASED GLUCOSE; Start 02/21/19 at 17:00 Glucose (Glutose) 22.5 gm Q15M PRN PO DECREASED GLUCOSE; Start 02/21/19 at 17:00 Dextrose (D50w Syringe) 25 ml Q15M PRN IV DECREASED GLUCOSE; Start 02/21/19 at 17:00 Dextrose (D50w Syringe) 50 ml Q15M PRN IV DECREASED GLUCOSE; Start 02/21/19 at 17:00 Glucagon (Glucagen) 1 mg Q15M PRN IM DECREASED GLUCOSE; Start 02/21/19 at 17:00 Glucose (Glutose) 15 gm Q15M PRN BUCCAL DECREASED GLUCOSE; Start 02/21/19 at 17:00 Diagnostic Test (Pha) (Accu-Chek) 1 ea 02 XX Last administered on 02/22/19 02:00; Admin Dose 1 EA; Start 02/22/19 at 02:00 Insulin Aspart (Novolog Insulin Pen) NOVOLOG *MILD* ALGORITHM WITH MEALS BEDTIME SC Last administered on 02/24/19 12:39; Admin Dose 1 UNIT; Start 02/21/19 at 17:55 Acetaminophen/ Hydrocodone Bitart ([place] (10/325)) 1 tab Q4H PRN PO MODERATE PAIN LEVEL 4-6; Start 02/21/19 at 18:10 Morphine Sulfate (morphine) 4 mg Q4H PRN IV SEVERE PAIN LEVEL 7-10 Last administered on 02/23/19 06:34; Admin Dose 4 MG; Start 02/21/19 at 22:30 IV Flush (NS 3 ml) 3 ml PER PROTOCOL IV ; Start 02/23/19 at 18:30 Sodium Chloride 1,000 ml @ 100 mls/hr Q10H IV Last administered on 02/24/19 06:15; Admin Dose 100 MLS/HR; Start 02/23/19 at 18:04 Enoxaparin Sodium (Lovenox) 40 mg DAILY SC Last administered on 02/24/19at 08:22; Admin Dose 40 MG; Start 02/24/19 at 09:00 Hydromorphone HCl (Dilaudid) 1 mg Q4H PRN IV SEVERE PAIN LEVEL 7-10; Start 02/23/19 at 18:30 Acetaminophen/ Hydrocodone Bitart ([place] (5/325)) 1 tab Q3H PRN PO MODERATE PAIN LEVEL 4-6; Start 02/23/19 at 18:30 JULIANA DELGADO Feb 24, 2019 12:52
--- NOTE | 2019-02-24 13:22 | CONS ---
Assessment/Plan Assessment/Plan Hospital Course (Demo Recall) Preoperative cardiac risk stratification Right upper extremity fracture status post surgery 02/23/2019 Preserved left ventricular ejection fraction Diabetes Hypertension Dyslipidemia Patient is doing well status post surgery yesterday with no chest pain or shortness of breath Blood pressure remains well controlled No new cardiac orders at the current time Consultation Date/Type/Reason Admit Date/Time Feb 21, 2019 at 12:07 Initial Consult Date Type of Consult Cardiology Date/Time of Note DATE: 02/24/19 TIME: 13:13 24 HR Interval Summary Free Text/Dictation No shortness of breath, chest pain or palpitations Exam/Review of Systems Vital Signs Vitals Vital Signs Date Temp Pulse Resp B/P (MAP) Pulse Ox O2 O2 Flow FiO2 Time Delivery Rate 02/24/19 98.3 87 18 132/59 91 Room Air 08:12 (83) 02/24/19 2.0 00:00 Intake and Output 02/23/19 02/23/19 02/24/19 1515:00 23:00 07:00 IntakeIntake Total 3440 ml 1100 ml OutputOutput Total 750 ml BalanceBalance 2690 ml 1100 ml Exam Constitutional: alert, oriented (No apparent distress) Head: normocephalic Respiratory: other (Coarse breath sounds bilaterally, no wheezing) Cardiovascular: regular rate and rhythm (S1-S2 heard) Gastrointestinal: soft, non-tender, bowel sounds Extremities: edema Labs Result Diagram: 02/24/19 0425 02/24/19 0425 Results 24hrs Laboratory Tests Test 02/23/19 19:11 02/23/19 19:15 02/23/19 20:52 02/24/19 02:01 Bedside Glucose 226 H 242 H 179 Urine NEGATIVE Test Test 02/24/19 04:25 02/24/19 07:10 02/24/19 08:00 02/24/19 12:36 White Blood Count 5.2 Red Blood Count 3.54 L Hemoglobin 9.6 L Hematocrit 30.4 L Mean Corpuscular 85.9 Volume Mean Corpuscular 27.1 L Hemoglobin Mean Corpuscular 31.6 L Hemoglobin Concent Red Cell 18.1 H Distribution Width Platelet Count 178 Mean Platelet 11.3 H Volume Immature 0.200 Granulocytes % Neutrophils % 79.0 H Lymphocytes % 7.1 L Monocytes % 13.3 H Eosinophils % 0.2 Basophils % 0.2 Nucleated Red Blood 0.0 Cells % Immature 0.010 Granulocytes # Neutrophils # 4.1 Lymphocytes # 0.4 L Monocytes # 0.7 Eosinophils # 0.0 Basophils # 0.0 Nucleated Red Blood 0.0 Cells # Sodium Level 141 Potassium Level 4.8 Chloride Level 109 Carbon Dioxide 25 Level Anion Gap 7 Blood Urea Nitrogen 25 H Creatinine 1.08 H Est Glomerular 53 L Filtrat Rate mL/min Glucose Level 153 Calcium Level 8.2 L Lab Scanned Report BLOOD TRANSFUSION Bedside Glucose 144 144 Medications Medications Current Medications Aspirin (Halfprin) 81 mg DAILY PO Last administered on 02/24/19 08:23; Admin Dose 81 MG; Start 02/22/19 at 09:00 Atorvastatin Calcium (Lipitor) 40 mg QHS PO Last administered on 02/23/19 22:37; Admin Dose 40 MG; Start 02/21/19 at 21:00 Cholecalciferol (Vitamin D) 2,000 unit DAILY PO Last administered on 02/24/19 08:22; Admin Dose 2,000 UNIT; Start 02/22/19 at 09:00 Insulin Glargine (Lantus) 70 units QHS SC Last administered on 02/23/19 20:58; Admin Dose 70 UNITS; Start 02/21/19 at 21:00 Levothyroxine Sodium (Synthroid) 200 mcg BEFORE BREAKFAST PO Last administered on 02/24/19 06:11; Admin Dose 200 MCG; Start 02/22/19 at 07:00 Linagliptin (Tradjenta) 5 mg DAILY PO Last administered on 02/24/19 08:23; Admin Dose 5 MG; Start 02/22/19 at 09:00 Lisinopril (Zestril) 40 mg BID PO Last administered on 02/24/19 08:23; Admin Dose 40 MG; Start 02/21/19 at 21:00 Magnesium Oxide (Mag-Ox 400) 400 mg BID PO Last administered on 02/24/19 08:23; Admin Dose 400 MG; Start 02/21/19 at 21:00 Metformin HCl (Glucophage) 1,000 mg WITH BREAKFAST DINNE PO Last administered on 02/24/19 08:27; Admin Dose 1,000 MG; Start 02/21/19 at 17:55 Pioglitazone HCl (Actos) 30 mg DAILY PO Last administered on 7/5/19at 08:22; Admin Dose 30 MG; Start 02/22/19 at 09:00 Multivitamins/ Minerals (Theragran-M) 1 tab DAILY PO Last administered on 02/24/19at 08:23; Admin Dose 1 TAB; Start 02/22/19 at 09:00 Pantoprazole (Protonix Tab) 40 mg DAILY@06 PO Last administered on 02/24/19at 06:11; Admin Dose 40 MG; Start 02/22/19 at 06:00 Miscellaneous Information 1 ea NOTE XX ; Start 02/21/19 at 17:00 Glucose (Glutose) 15 gm Q15M PRN PO DECREASED GLUCOSE; Start 02/21/19 at 17:00 Glucose (Glutose) 22.5 gm Q15M PRN PO DECREASED GLUCOSE; Start 02/21/19 at 17:00 Dextrose (D50w Syringe) 25 ml Q15M PRN IV DECREASED GLUCOSE; Start 02/21/19 at 17:00 Dextrose (D50w Syringe) 50 ml Q15M PRN IV DECREASED GLUCOSE; Start 02/21/19 at 17:00 Glucagon (Glucagen) 1 mg Q15M PRN IM DECREASED GLUCOSE; Start 02/21/19 at 17:00 Glucose (Glutose) 15 gm Q15M PRN BUCCAL DECREASED GLUCOSE; Start 02/21/19 at 17:00 Diagnostic Test (Pha) (Accu-Chek) 1 ea 02 XX Last administered on 02/22/19at 02:00; Admin Dose 1 EA; Start 02/22/19 at 02:00 Insulin Aspart (Novolog Insulin Pen) NOVOLOG *MILD* ALGORITHM WITH MEALS BEDTIME SC Last administered on 02/24/19at 12:39; Admin Dose 1 UNIT; Start 02/21/19 at 17:55 Acetaminophen/ Hydrocodone Bitart ([place] (10325)) 1 tab Q4H PRN PO MODERATE PAIN LEVEL 4-6; Start 02/21/19 at 18:10 Morphine Sulfate (morphine) 4 mg Q4H PRN IV SEVERE PAIN LEVEL 7-10 Last admini stered on 02/23/19at 06:34; Admin Dose 4 MG; Start 02/21/19 at 22:30 IV Flush (NS 3 ml) 3 ml PER PROTOCOL IV ; Start 02/23/19 at 18:30 Sodium Chloride 1,000 ml @ 100 mls/hr Q10H IV Last administered on 02/24/19at 06:15; Admin Dose 100 MLS/HR; Start 02/23/19 at 18:04 Enoxaparin Sodium (Lovenox) 40 mg DAILY SC Last administered on 02/24/19at 08:22; Admin Dose 40 MG; Start 02/24/19 at 09:00 Hydromorphone HCl (Dilaudid) 1 mg Q4H PRN IV SEVERE PAIN LEVEL 7-10; Start 02/23/19 at 18:30 Acetaminophen/ Hydrocodone Bitart ([place] (5/325)) 1 tab Q3H PRN PO MODERATE PAIN LEVEL 4-6; Start 02/23/19 at 18:30 Andrew Ferguson DO Feb 24, 2019 13:22
[2019-02-24 14:13] VITALS: BP 122/62; PULSE 92; RESP 18
[2019-02-24] MEDS: HYDROCODONE/APAP (5/325) TAB PO PRN (16:05)
--- NOTE | 2019-02-24 16:32 | PN ---
DATE: 02/24/2019 First postop day, afebrile. H and H is 9.6/30.4, extensive swelling involving right upper extremity. The right upper extremity was elevated by hanging it from IV pole using Doshi's traction boots. Obv ious signs of radial nerve palsy including wrist drop and numbness of the radial nerve distribution. Also, seems to have some neuropraxia involving ulnar nerve, including the weakness of the interosseo us muscles in the hand, along with the numbness in the ulnar nerve distribution. OT has been ordered and also the wrist cockup . Also, a wrist extension cockup brace has been ordered. Postop x-r ay shows satisfactory alignment of the fracture. Dictated By: EDUAR PRITCHETT MD IK/NTS Conf#: [id number] DID#: [id number] CC: CHALINO MTZ MD;*EndCC*
[2019-02-24 20:03] VITALS: BP 121/58; PULSE 95; RESP 20
[2019-02-24] MEDS: ATORVASTATIN 40 MG TAB PO SCH (21:02)
[2019-02-24] MEDS: INSULIN GLARGINE [LANTus] (100 UNITS/ML) SYG SC SCH (21:09)
[2019-02-25] MEDS: ACCU-CHEK XX SCH (02:00)
[2019-02-25 02:32] VITALS: BP 124/61; PULSE 90; RESP 17
[2019-02-25] MEDS: LEVOTHYROXINE 100 MCG TAB PO SCH (06:40)
[2019-02-25] MEDS: PANTOPRAZOLE (EC) 40 MG TAB PO SCH (06:40)
[2019-02-25] MEDS: HYDROCODONE/APAP (10/325) TAB PO PRN (08:04)
[2019-02-25 08:09] VITALS: BP 126/64; PULSE 74; RESP 18
[2019-02-25] MEDS: INSULIN ASPART [NOVOLOG] 3 ML PEN SC SCH ×5 (08:54→21:08)
[2019-02-25] MEDS: metFORMIN 500 MG TAB PO SCH ×2 (08:56→17:51)
[2019-02-25] MEDS: MAGNESIUM OXIDE 400 MG TAB PO SCH ×2 (09:30→21:12)
[2019-02-25] MEDS: LINAGLIPTIN 5 MG TABLET PO SCH (09:30)
[2019-02-25] MEDS: CHOLECALCIFEROL 2,000 UNIT CAP PO SCH (09:30)
[2019-02-25] MEDS: LISINOPRIL 20 MG TAB PO SCH ×2 (09:31→21:13)
[2019-02-25] MEDS: MULTIVITAMINS/MINERALS TAB PO SCH (09:31)
[2019-02-25] MEDS: ASPIRIN (EC) 81 MG TAB PO SCH (09:31)
[2019-02-25] MEDS: ENOXAPARIN 40 MG/0.4 ML SYG SC SCH (09:34)
[2019-02-25] MEDS: PIOGLITAZONE 30 MG TAB PO SCH (09:38)
[2019-02-25] MEDS: SOD CHLORIDE 0.9% 1,000 ML IV SCH ×2 (10:04→16:17)
--- NOTE | 2019-02-25 10:55 | CONS ---
Assessment/Plan Assessment/Plan Assessment/Plan (Daily) Right upper extremity fracture status post surgery 02/23/2019 Preserved left ventricular ejection fraction Diabetes Hypertension Dyslipidemia Patient is doing well status post surgery with no chest pain or shortness of breath Blood pressure remains well controlled No new cardiac orders at the current time Consultation Date/Type/Reason Admit Date/Time Feb 21, 2019 at 12:07 Initial Consult Date Type of Consult Cardiology Date/Time of Note DATE: 02/25/19 TIME: 10:55 24 HR Interval Summary Free Text/Dictation the patient with no change Exam/Review of Systems Vital Signs Vitals Vital Signs Date Temp Pulse Resp B/P (MAP) Pulse Ox O2 O2 Flow FiO2 Time Delivery Rate 02/25/19 98.3 74 18 126/64 99 Room Air 08:09 (84) 02/24/19 2.0 00:00 Intake and Output 02/24/19 02/24/19 02/25/19 1515:00 23:00 07:00 IntakeIntake Total 350 ml 1800 ml 550 ml OutputOutput Total 1500 ml BalanceBalance 350 ml 300 ml 550 ml Labs Result Diagram: 02/25/19 0431 02/25/19 0431 Results 24hrs Laboratory Tests Test 02/24/19 12:36 02/24/19 17:49 02/24/19 21:04 02/25/19 02:05 Bedside Glucose 144 164 233 H 221 H Test 02/25/19 04:31 02/25/19 08:40 White Blood Count 6.4 # Red Blood Count 3.39 L Hemoglobin 9.2 L Hematocrit 28.6 L Mean Corpuscular Volume 84.4 Mean Corpuscular 27.1 L Hemoglobin Mean Corpuscular 32.2 Hemoglobin Concent Red Cell Distribution 18.2 H Width Platelet Count 173 Mean Platelet Volume 11.6 H Immature Granulocytes % 0.500 H Neutrophils % 78.4 H Lymphocytes % 8.5 L Monocytes % 12.2 H Eosinophils % 0.2 Basophils % 0.2 Nucleated Red Blood 0.0 Cells % Immature Granulocytes # 0.030 Neutrophils # 5.0 Lymphocytes # 0.5 L Monocytes # 0.8 Eosinophils # 0.0 Basophils # 0.0 Nucleated Red Blood 0.0 Cells # Sodium Level 139 Potassium Level 4.4 Chloride Level 108 Carbon Dioxide Level 24 Anion Gap 7 Blood Urea Nitrogen 27 H Creatinine 0.99 Est Glomerular Filtrat 59 L Rate mL/min Glucose Level 189 Hemoglobin A1c 6.1 H Calcium Level 8.0 L Bedside Glucose 166 Medications Medications Current Medications Aspirin (Halfprin) 81 mg DAILY PO Last administered on 02/25/19 09:31; Admin Dose 81 MG; Start 02/22/19 at 09:00 Atorvastatin Calcium (Lipitor) 40 mg QHS PO Last administered on 02/24/19 21:02; Admin Dose 40 MG; Start 02/21/19 at 21:00 Cholecalciferol (Vitamin D) 2,000 unit DAILY PO Last administered on 02/25/19 09:30; Admin Dose 2,000 UNIT; Start 02/22/19 at 09:00 Insulin Glargine (Lantus) 70 units QHS SC Last administered on 02/24/19 21:09; Admin Dose 70 UNITS; Start 02/21/19 at 21:00 Levothyroxine Sodium (Synthroid) 200 mcg BEFORE BREAKFAST PO Last administered on 02/25/19 06:40; Admin Dose 200 MCG; Start 02/22/19 at 07:00 Linagliptin (Tradjenta) 5 mg DAILY PO Last administered on 02/25/19 09:30; Admin Dose 5 MG; Start 02/22/19 at 09:00 Lisinopril (Zestril) 40 mg BID PO Last administered on 02/25/19 09:31; Admin Dose 40 MG; Start 02/21/19 at 21:00 Magnesium Oxide (Mag-Ox 400) 400 mg BID PO Last administered on 02/25/19 09:30; Admin Dose 400 MG; Start 02/21/19 at 21:00 Metformin HCl (Glucophage) 1,000 mg WITH BREAKFAST DINNE PO Last administered on 02/25/19 08:56; Admin Dose 1,000 MG; Start 02/21/19 at 17:55 Pioglitazone HCl (Actos) 30 mg DAILY PO Last administered on 02/25/19 09:38; Admin Dose 30 MG; Start 02/22/19 at 09:00 Multivitamins/ Minerals (Theragran-M) 1 tab DAILY PO Last administered on 02/25/19 09:31; Admin Dose 1 TAB; Start 02/22/19 at 09:00 Pantoprazole (Protonix Tab) 40 mg DAILY@06 PO Last administered on 7/6/19at 06:40; Admin Dose 40 MG; Start 02/22/19 at 06:00 Miscellaneous Information 1 ea NOTE XX ; Start 02/21/19 at 17:00 Glucose (Glutose) 15 gm Q15M PRN PO DECREASED GLUCOSE; Start 02/21/19 at 17:00 Glucose (Glutose) 22.5 gm Q15M PRN PO DECREASED GLUCOSE; Start 02/21/19 at 17:00 Dextrose (D50w Syringe) 25 ml Q15M PRN IV DECREASED GLUCOSE; Start 02/21/19 at 17:00 Dextrose (D50w Syringe) 50 ml Q15M PRN IV DECREASED GLUCOSE; Start 02/21/19 at 17:00 Glucagon (Glucagen) 1 mg Q15M PRN IM DECREASED GLUCOSE; Start 02/21/19 at 17:00 Glucose (Glutose) 15 gm Q15M PRN BUCCAL DECREASED GLUCOSE; Start 02/21/19 at 17:00 Diagnostic Test (Pha) (Accu-Chek) 1 ea 02 XX Last administered on 02/22/19at 02:00; Admin Dose 1 EA; Start 02/22/19 at 02:00 Insulin Aspart (Novolog Insulin Pen) NOVOLOG *MILD* ALGORITHM WITH MEALS BEDTIME SC Last administered on 02/25/19at 08:54; Admin Dose 1 UNIT; Start 02/21/19 at 17:55 Acetaminophen/ Hydrocodone Bitart ([place] (10/325)) 1 tab Q4H PRN PO MODERATE PAIN LEVEL 4-6 Last administered on 02/25/19at 08:04; Admin Dose 1 TAB; Start 02/21/19 at 18:10 Morphine Sulfate (morphine) 4 mg Q4H PRN IV SEVERE PAIN LEVEL 7-10 Last administered on 02/23/19at 06:34; Admin Dose 4 MG; Start 02/21/19 at 22:30 IV Flush (NS 3 ml) 3 ml PER PROTOCOL IV ; Start 02/23/19 at 18:30 Sodium Chloride 1,000 ml @ 100 mls/hr Q10H IV Last administered on 02/24/19at 18:41; Admin Dose 100 MLS/HR; Start 02/23/19 at 18:04 Enoxaparin Sodium (Lovenox) 40 mg DAILY SC Last administered on 02/25/19at 09:34; Admin Dose 40 MG; Start 02/24/19 at 09:00 Hydromorphone HCl (Dilaudid) 1 mg Q4H PRN IV SEVERE PAIN LEVEL 7-10; Start 02/23/19 at 18:30 Acetaminophen/ Hydrocodone Bitart ([place] (5/325)) 1 tab Q3H PRN PO MODERATE PAIN LEVEL 4-6 Last administered on 02/24/19at 16:05; Admin Dose 1 TAB; Start 02/23/19 at 18:30 Senna (Senokot) 2 tab BID PO ; Start 02/25/19 at 11:00 EDGAR LOJA MD Feb 25, 2019 10:55
[2019-02-25] MEDS: SENNA TAB PO SCH ×2 (12:01→21:13)
[2019-02-25 14:59] VITALS: BP 124/60; PULSE 90; RESP 18
[2019-02-25] MEDS: HYDROCODONE/APAP (5/325) TAB PO PRN ×2 (15:14→21:14)
--- NOTE | 2019-02-25 15:37 | PN ---
Date/Time of Note Date/Time of Note DATE: 02/25/19 TIME: 15:36 Assessment/Plan VTE Prophylaxis Risk [place] [facility] risk: 7 SCD applied ([place] [facility] Yes SCD contraindicated: other Pharmacological prophylaxis: other Pharm contraindication: other Lines/Catheters IV Catheter Type (from [facility]): Peripheral IV Urinary Cath still in place: No Assessment/Plan Assessment/Plan -Closed fracture of right distal humerus. Dr. Merrill is following in orthopedic surgery consultation. Pending ORIF R humerus. S/p evaluation by Dr. Ferguson in cardiology consultation, cleared for surgery. -Abrasion, left knee, continue local care. -Abrasion of face, continue local care. - JOHNIE- Cr trended down today -Diabetes, continue Tradjenta Actos Lantus and NovoLog -Hypertension, continue lisinopril -Hypothyroidism, continue levothyroxine -Morbid obesity with BMI of 42 -History of minor stroke, continue aspirin -History of [place] according to the patient Further recommendations based on clinical course. Plan of care discussed with Dr. Paige. Result Diagram: 02/25/19 0431 02/25/19 0431 Results 24hrs Laboratory Tests Test 02/24/19 17:49 02/24/19 21:04 02/25/19 02:05 02/25/19 04:31 Bedside Glucose 164 233 H 221 H White Blood Count 6.4 # Red Blood Count 3.39 L Hemoglobin 9.2 L Hematocrit 28.6 L Mean Corpuscular Volume 84.4 Mean Corpuscular 27.1 L Hemoglobin Mean Corpuscular 32.2 Hemoglobin Concent Red Cell Distribution 18.2 H Width Platelet Count 173 Mean Platelet Volume 11.6 H Immature Granulocytes % 0.500 H Neutrophils % 78.4 H Lymphocytes % 8.5 L Monocytes % 12.2 H Eosinophils % 0.2 Basophils % 0.2 Nucleated Red Blood 0.0 Cells % Immature Granulocytes # 0.030 Neutrophils # 5.0 Lymphocytes # 0.5 L Monocytes # 0.8 Eosinophils # 0.0 Basophils # 0.0 Nucleated Red Blood 0.0 Cells # Sodium Level 139 Potassium Level 4.4 Chloride Level 108 Carbon Dioxide Level 24 Anion Gap 7 Blood Urea Nitrogen 27 H Creatinine 0.99 Est Glomerular Filtrat 59 L Rate mL/min Glucose Level 189 Hemoglobin A1c 6.1 H Calcium Level 8.0 L Test 02/25/19 08:40 02/25/19 12:19 Bedside Glucose 166 263 H Exam/Review of Systems Exam Vitals Vital Signs Date Temp Pulse Resp B/P (MAP) Pulse Ox O2 O2 Flow FiO2 Time Delivery Rate 02/25/19 98.3 90 18 124/60 99 Room Air 14:59 (81) 02/24/19 2.0 00:00 Intake and Output 02/24/19 02/24/19 02/25/19 1414:59 22:59 06:59 IntakeIntake Total 350 ml 1800 ml 550 ml OutputOutput Total 1500 ml BalanceBalance 350 ml 300 ml 550 ml Constitutional: alert, well developed Psych: nl mood/affect Musculoskeletal: joint tenderness, range of motion Extremities: edema (RUE; SLING NOTED) Results Results 24hrs Laboratory Tests Test 02/24/19 17:49 02/24/19 21:04 02/25/19 02:05 02/25/19 04:31 Bedside Glucose 164 233 H 221 H White Blood Count 6.4 # Red Blood Count 3.39 L Hemoglobin 9.2 L Hematocrit 28.6 L Mean Corpuscular Volume 84.4 Mean Corpuscular 27.1 L Hemoglobin Mean Corpuscular 32.2 Hemoglobin Concent Red Cell Distribution 18.2 H Width Platelet Count 173 Mean Platelet Volume 11.6 H Immature Granulocytes % 0.500 H Neutrophils % 78.4 H Lymphocytes % 8.5 L Monocytes % 12.2 H Eosinophils % 0.2 Basophils % 0.2 Nucleated Red Blood 0.0 Cells % Immature Granulocytes # 0.030 Neutrophils # 5.0 Lymphocytes # 0.5 L Monocytes # 0.8 Eosinophils # 0.0 Basophils # 0.0 Nucleated Red Blood 0.0 Cells # Sodium Level 139 Potassium Level 4.4 Chloride Level 108 Carbon Dioxide Level 24 Anion Gap 7 Blood Urea Nitrogen 27 H Creatinine 0.99 Est Glomerular Filtrat 59 L Rate mL/min Glucose Level 189 Hemoglobin A1c 6.1 H Calcium Level 8.0 L Test 02/25/19 08:40 02/25/19 12:19 Bedside Glucose 166 263 H Medications Medication Current Medications Aspirin (Halfprin) 81 mg DAILY PO Last administered on 02/25/19at 09:31; Admin Dose 81 MG; Start 02/22/19 at 09:00 Atorvastatin Calcium (Lipitor) 40 mg QHS PO Last administered on 02/24/19 21:02; Admin Dose 40 MG; Start 02/21/19 at 21:00 Cholecalciferol (Vitamin D) 2,000 unit DAILY PO Last administered on 02/25/19 09:30; Admin Dose 2,000 UNIT; Start 02/22/19 at 09:00 Insulin Glargine (Lantus) 70 units QHS SC Last administered on 02/24/19 21:09; Admin Dose 70 UNITS; Start 02/21/19 at 21:00 Levothyroxine Sodium (Synthroid) 200 mcg BEFORE BREAKFAST PO Last administered on 02/25/19 06:40; Admin Dose 200 MCG; Start 02/22/19 at 07:00 Linagliptin (Tradjenta) 5 mg DAILY PO Last administered on 02/25/19 09:30; Admin Dose 5 MG; Start 02/22/19 at 09:00 Lisinopril (Zestril) 40 mg BID PO Last administered on 02/25/19 09:31; Admin Dose 40 MG; Start 02/21/19 at 21:00 Magnesium Oxide (Mag-Ox 400) 400 mg BID PO Last administered on 02/25/19 09:30; Admin Dose 400 MG; Start 02/21/19 at 21:00 Metformin HCl (Glucophage) 1,000 mg WITH BREAKFAST DINNE PO Last administered on 02/25/19 08:56; Admin Dose 1,000 MG; Start 02/21/19 at 17:55 Pioglitazone HCl (Actos) 30 mg DAILY PO Last administered on 02/25/19 09:38; Admin Dose 30 MG; Start 02/22/19 at 09:00 Multivitamins/ Minerals (Theragran-M) 1 tab DAILY PO Last administered on 02/25/19 09:31; Admin Dose 1 TAB; Start 02/22/19 at 09:00 Pantoprazole (Protonix Tab) 40 mg DAILY@06 PO Last administered on 02/25/19 06:40; Admin Dose 40 MG; Start 02/22/19 at 06:00 Miscellaneous Information 1 ea NOTE XX ; Start 02/21/19 at 17:00 Glucose (Glutose) 15 gm Q15M PRN PO DECREASED GLUCOSE; Start 02/21/19 at 17:00 Glucose (Glutose) 22.5 gm Q15M PRN PO DECREASED GLUCOSE; Start 02/21/19 at 17:00 Dextrose (D50w Syringe) 25 ml Q15M PRN IV DECREASED GLUCOSE; Start 02/21/19 at 17:00 Dextrose (D50w Syringe) 50 ml Q15M PRN IV DECREASED GLUCOSE; Start 02/21/19 at 17:00 Glucagon (Glucagen) 1 mg Q15M PRN IM DECREASED GLUCOSE; Start 02/21/19 at 17:00 Glucose (Glutose) 15 gm Q15M PRN BUCCAL DECREASED GLUCOSE; Start 02/21/19 at 17:00 Diagnostic Test (Pha) (Accu-Chek) 1 ea 02 XX Last administered on 02/22/19at 02:00; Admin Dose 1 EA; Start 02/22/19 at 02:00 Insulin Aspart (Novolog Insulin Pen) NOVOLOG *MILD* ALGORITHM WITH MEALS BEDTIME SC Last administered on 02/25/19at 12:29; Admin Dose 4 UNIT; Start 02/21/19 at 17:55 Acetaminophen/ Hydrocodone Bitart ([place] (325)) 1 tab Q4H PRN PO MODERATE PAIN LEVEL 4-6 Last administered on 02/25/19at 08:04; Admin Dose 1 TAB; Start 02/21/19 at 18:10 Morphine Sulfate (morphine) 4 mg Q4H PRN IV SEVERE PAIN LEVEL 7-10 Last administered on 02/23/19at 06:34; Admin Dose 4 MG; Start 02/21/19 at 22:30 IV Flush (NS 3 ml) 3 ml PER PROTOCOL IV ; Start 02/23/19 at 18:30 Sodium Chloride 1,000 ml @ 100 mls/hr Q10H IV Last administered on 02/24/19at 18:41; Admin Dose 100 MLS/HR; Start 02/23/19 at 18:04 Enoxaparin Sodium (Lovenox) 40 mg DAILY SC Last administered on 02/25/19 09:34; Admin Dose 40 MG; Start 02/24/19 at 09:00 Hydromorphone HCl (Dilaudid) 1 mg Q4H PRN IV SEVERE PAIN LEVEL 7-10; Start 02/23/19 at 18:30 Acetaminophen/ Hydrocodone Bitart ([place] (325)) 1 tab Q3H PRN PO MODERATE PAIN LEVEL 4-6 Last administered on 02/25/19at 15:14; Admin Dose 1 TAB; Start 02/23/19 at 18:30 Senna (Senokot) 2 tab BID PO Last administered on 02/25/19at 12:01; Admin Dose 2 TAB; Start 02/25/19 at 11:00 Insulin Aspart (Novolog Insulin Pen) 5 unit WITH MEALS SC ; Start 02/25/19 at 17:55; Status JULIANA PAYAN Feb 25, 2019 15:37
[2019-02-25 19:40] VITALS: BP 116/55; PULSE 94; RESP 18
[2019-02-25] MEDS: INSULIN GLARGINE [LANTus] (100 UNITS/ML) SYG SC SCH (21:09)
[2019-02-25] MEDS: ATORVASTATIN 40 MG TAB PO SCH (21:12)
[2019-02-26] MEDS: ACCU-CHEK XX SCH (02:00)
[2019-02-26 02:38] VITALS: BP 136/64; PULSE 94; RESP 18
[2019-02-26] MEDS: PANTOPRAZOLE (EC) 40 MG TAB PO SCH (06:06)
[2019-02-26] MEDS: LEVOTHYROXINE 100 MCG TAB PO SCH (06:07)
[2019-02-26] MEDS: SOD CHLORIDE 0.9% 1,000 ML IV SCH ×2 (06:08→15:59)
[2019-02-26] MEDS: INSULIN ASPART [NOVOLOG] 3 ML PEN SC SCH ×7 (07:50→20:52)
[2019-02-26 07:51] VITALS: BP 151/74; PULSE 81; RESP 18
[2019-02-26] MEDS: PIOGLITAZONE 30 MG TAB PO SCH (08:35)
[2019-02-26] MEDS: MULTIVITAMINS/MINERALS TAB PO SCH (08:35)
[2019-02-26] MEDS: CHOLECALCIFEROL 2,000 UNIT CAP PO SCH (08:35)
[2019-02-26] MEDS: ASPIRIN (EC) 81 MG TAB PO SCH (08:35)
[2019-02-26] MEDS: MAGNESIUM OXIDE 400 MG TAB PO SCH ×2 (08:35→20:50)
[2019-02-26] MEDS: LINAGLIPTIN 5 MG TABLET PO SCH (08:36)
[2019-02-26] MEDS: SENNA TAB PO SCH ×2 (08:36→20:50)
[2019-02-26] MEDS: LISINOPRIL 20 MG TAB PO SCH ×2 (08:36→20:50)
[2019-02-26] MEDS: ENOXAPARIN 40 MG/0.4 ML SYG SC SCH (08:37)
[2019-02-26] MEDS: HYDROCODONE/APAP (10/325) TAB PO PRN ×2 (08:41→15:59)
[2019-02-26] MEDS: metFORMIN 500 MG TAB PO SCH ×2 (08:41→17:30)
--- NOTE | 2019-02-26 11:09 | PN ---
Date/Time of Note Date/Time of Note DATE: 02/26/19 TIME: 11:09 Assessment/Plan VTE Prophylaxis Risk score (from Nsg)>0 risk: 9 SCD applied (from Nsg): Yes Lines/Catheters IV Catheter Type (from Nrsg): [place] Urinary Cath still in place: No Assessment/Plan Assessment/Plan -Closed fracture of right distal humerus. Dr. Merrill is following in orthopedic surgery consultation. Pending ORIF R humerus. S/p evaluation by Dr. Ferguson in cardiology consultation, cleared for surgery. -Abrasion, left knee, continue local care. -Abrasion of face, continue local care. - JOHNIE- Cr trended down today -Diabetes, continue Tradjenta Actos Lantus and NovoLog -Hypertension, continue lisinopril -Hypothyroidism, continue levothyroxine -Morbid obesity with BMI of 42 -History of minor stroke, continue aspirin -History of [place] according to the patient Further recommendations based on clinical course. Plan of care discussed with Dr. Paige. Result Diagram: 02/26/19 0436 02/26/19 0436 Results 24hrs Laboratory Tests Test 02/25/19 12:19 02/25/19 17:33 02/25/19 21:04 02/26/19 02:53 Bedside Glucose 263 H 209 202 130 Test 02/26/19 04:36 02/26/19 08:34 White Blood Count 5.4 Red Blood Count 3.20 L Hemoglobin 8.6 L Hematocrit 27.3 L Mean Corpuscular Volume 85.3 Mean Corpuscular 26.9 L Hemoglobin Mean Corpuscular 31.5 L Hemoglobin Concent Red Cell Distribution 18.2 H Width Platelet Count 165 Mean Platelet Volume 10.9 H Immature Granulocytes % 0.400 Neutrophils % 77.0 Lymphocytes % 11.0 L Monocytes % 9.3 Eosinophils % 2.1 Basophils % 0.2 Nucleated Red Blood 0.0 Cells % Immature Granulocytes # 0.020 Neutrophils # 4.1 Lymphocytes # 0.6 L Monocytes # 0.5 Eosinophils # 0.1 Basophils # 0.0 Nucleated Red Blood 0.0 Cells # Sodium Level 139 Potassium Level 4.4 Chloride Level 107 Carbon Dioxide Level 27 Anion Gap 5 Blood Urea Nitrogen 25 H Creatinine 0.95 Est Glomerular Filtrat > 60 Rate mL/min Glucose Level 119 # Calcium Level 8.3 L Bedside Glucose 126 Exam/Review of Systems Exam Vitals Vital Signs Date Temp Pulse Resp B/P (MAP) Pulse Ox O2 O2 Flow FiO2 Time Delivery Rate 02/26/19 98.0 81 18 151/74 94 Room Air 07:51 (99) 02/24/19 2.0 00:00 Intake and Output 02/25/19 02/25/19 02/26/19 1515:00 23:00 07:00 IntakeIntake Total 1250 ml 340 ml 900 ml OutputOutput Total 500 ml BalanceBalance 750 ml 340 ml 900 ml Results Results 24hrs Laboratory Tests Test 02/25/19 12:19 02/25/19 17:33 02/25/19 21:04 02/26/19 02:53 Bedside Glucose 263 H 209 202 130 Test 02/26/19 04:36 02/26/19 08:34 White Blood Count 5.4 Red Blood Count 3.20 L Hemoglobin 8.6 L Hematocrit 27.3 L Mean Corpuscular Volume 85.3 Mean Corpuscular 26.9 L Hemoglobin Mean Corpuscular 31.5 L Hemoglobin Concent Red Cell Distribution 18.2 H Width Platelet Count 165 Mean Platelet Volume 10.9 H Immature Granulocytes % 0.400 Neutrophils % 77.0 Lymphocytes % 11.0 L Monocytes % 9.3 Eosinophils % 2.1 Basophils % 0.2 Nucleated Red Blood 0.0 Cells % Immature Granulocytes # 0.020 Neutrophils # 4.1 Lymphocytes # 0.6 L Monocytes # 0.5 Eosinophils # 0.1 Basophils # 0.0 Nucleated Red Blood 0.0 Cells # Sodium Level 139 Potassium Level 4.4 Chloride Level 107 Carbon Dioxide Level 27 Anion Gap 5 Blood Urea Nitrogen 25 H Creatinine 0.95 Est Glomerular Filtrat > 60 Rate mL/min Glucose Level 119 # Calcium Level 8.3 L Bedside Glucose 126 Medications Medication Current Medications Aspirin (Halfprin) 81 mg DAILY PO Last administered on 02/26/19at 08:35; Admin Dose 81 MG; Start 02/22/19 at 09:00 Atorvastatin Calcium (Lipitor) 40 mg QHS PO Last administered on 02/25/19at 21:12; Admin Dose 40 MG; Start 02/21/19 at 21:00 Cholecalciferol (Vitamin D) 2,000 unit DAILY PO Last administered on 02/26/19at 08:35; Admin Dose 2,000 UNIT; Start 02/22/19 at 09:00 Insulin Glargine (Lantus) 70 units QHS SC Last administered on 02/25/19 21:09; Admin Dose 70 UNITS; Start 02/21/19 at 21:00 Levothyroxine Sodium (Synthroid) 200 mcg BEFORE BREAKFAST PO Last administered on 02/26/19 06:07; Admin Dose 200 MCG; Start 02/22/19 at 07:00 Linagliptin (Tradjenta) 5 mg DAILY PO Last administered on 02/26/19 08:36; Admin Dose 5 MG; Start 02/22/19 at 09:00 Lisinopril (Zestril) 40 mg BID PO Last administered on 02/26/19 08:36; Admin Dose 40 MG; Start 02/21/19 at 21:00 Magnesium Oxide (Mag-Ox 400) 400 mg BID PO Last administered on 02/26/19 08:35; Admin Dose 400 MG; Start 02/21/19 at 21:00 Metformin HCl (Glucophage) 1,000 mg WITH BREAKFAST DINNE PO Last administered on 02/26/19 08:41; Admin Dose 1,000 MG; Start 02/21/19 at 17:55 Pioglitazone HCl (Actos) 30 mg DAILY PO Last administered on 02/26/19 08:35; Admin Dose 30 MG; Start 02/22/19 at 09:00 Multivitamins/ Minerals (Theragran-M) 1 tab DAILY PO Last administered on 08:35; Admin Dose 1 TAB; Start 02/22/19 at 09:00 Pantoprazole (Protonix Tab) 40 mg DAILY@06 PO Last administered on 02/26/19 06:06; Admin Dose 40 MG; Start 02/22/19 at 06:00 Miscellaneous Information 1 ea NOTE XX ; Start 02/21/19 at 17:00 Glucose (Glutose) 15 gm Q15M PRN PO DECREASED GLUCOSE; Start 02/21/19 at 17:00 Glucose (Glutose) 22.5 gm Q15M PRN PO DECREASED GLUCOSE; Start 02/21/19 at 17:00 Dextrose (D50w Syringe) 25 ml Q15M PRN IV DECREASED GLUCOSE; Start 02/21/19 at 17:00 Dextrose (D50w Syringe) 50 ml Q15M PRN IV DECREASED GLUCOSE; Start 02/21/19 at 17:00 Glucagon (Glucagen) 1 mg Q15M PRN IM DECREASED GLUCOSE; Start 02/21/19 at 17:00 Glucose (Glutose) 15 gm Q15M PRN BUCCAL DECREASED GLUCOSE; Start 02/21/19 at 17:00 Diagnostic Test (Pha) (Accu-Chek) 1 ea 02 XX Last administered on 02/22/19at 02:00; Admin Dose 1 EA; Start 02/22/19 at 02:00 Insulin Aspart (Novolog Insulin Pen) NOVOLOG *MILD* ALGORITHM WITH MEALS BEDTIME SC Last administered on 02/25/19 21:08; Admin Dose 1 UNIT; Start 02/21/19 at 17:55 Acetaminophen/ Hydrocodone Bitart ([place] (10/325)) 1 tab Q4H PRN PO MODERATE PAIN LEVEL 4-6 Last administered on 02/26/19 08:41; Admin Dose 1 TAB; Start 02/21/19 at 18:10 Morphine Sulfate (morphine) 4 mg Q4H PRN IV SEVERE PAIN LEVEL 7-10 Last administered on 02/23/19 06:34; Admin Dose 4 MG; Start 02/21/19 at 22:30 IV Flush (NS 3 ml) 3 ml PER PROTOCOL IV ; Start 02/23/19 at 18:30 Sodium Chloride 1,000 ml @ 100 mls/hr Q10H IV Last administered on 02/26/19 06:08; Admin Dose 100 MLS/HR; Start 02/23/19 at 18:04 Enoxaparin Sodium (Lovenox) 40 mg DAILY SC Last administered on 02/26/19 08:37; Admin Dose 40 MG; Start 02/24/19 at 09:00 Hydromorphone HCl (Dilaudid) 1 mg Q4H PRN IV SEVERE PAIN LEVEL 7-10; Start 02/23/19 at 18:30 Acetaminophen/ Hydrocodone Bitart ([place] (325)) 1 tab Q3H PRN PO MODERATE PAIN LEVEL 4-6 Last administered on 02/25/19 21:14; Admin Dose 1 TAB; Start 02/23/19 at 18:30 Senna (Senokot) 2 tab BID PO Last administered on 02/26/19 08:36; Admin Dose 2 TAB; Start 02/25/19 at 11:00 Insulin Aspart (Novolog Insulin Pen) 5 unit WITH MEALS SC Last administered on 02/26/19at 08:38; Admin Dose 5 UNIT; Start 02/25/19 at 17:55 JULIANA DELGADO Feb 26, 2019 11:09
[2019-02-26 14:56] VITALS: BP 138/70; RESP 18
[2019-02-26 19:47] VITALS: BP 118/58; PULSE 88; RESP 18
[2019-02-26] MEDS: ATORVASTATIN 40 MG TAB PO SCH (20:50)
[2019-02-26] MEDS: INSULIN GLARGINE [LANTus] (100 UNITS/ML) SYG SC SCH (20:51)
[2019-02-27] MEDS: HYDROCODONE/APAP (5/325) TAB PO PRN ×2 (01:15→22:17)
[2019-02-27] MEDS: ACCU-CHEK XX SCH (02:00)
[2019-02-27 02:13] VITALS: BP 139/63; PULSE 89; RESP 18
[2019-02-27] MEDS: LEVOTHYROXINE 100 MCG TAB PO SCH (05:47)
[2019-02-27] MEDS: PANTOPRAZOLE (EC) 40 MG TAB PO SCH (05:47)
[2019-02-27 08:07] VITALS: BP 138/78; PULSE 87; RESP 18
[2019-02-27] MEDS: CHOLECALCIFEROL 2,000 UNIT CAP PO SCH (08:58)
[2019-02-27] MEDS: LISINOPRIL 20 MG TAB PO SCH ×2 (08:58→22:15)
[2019-02-27] MEDS: LINAGLIPTIN 5 MG TABLET PO SCH (08:58)
[2019-02-27] MEDS: SENNA TAB PO SCH ×2 (08:58→22:13)
[2019-02-27] MEDS: MAGNESIUM OXIDE 400 MG TAB PO SCH ×2 (08:58→22:16)
[2019-02-27] MEDS: MULTIVITAMINS/MINERALS TAB PO SCH (08:58)
[2019-02-27] MEDS: ASPIRIN (EC) 81 MG TAB PO SCH (08:58)
[2019-02-27] MEDS: PIOGLITAZONE 30 MG TAB PO SCH (08:59)
[2019-02-27] MEDS: ENOXAPARIN 40 MG/0.4 ML SYG SC SCH (08:59)
[2019-02-27] MEDS: INSULIN ASPART [NOVOLOG] 3 ML PEN SC SCH ×7 (09:00→21:00)
[2019-02-27] MEDS: HYDROCODONE/APAP (10/325) TAB PO PRN (09:05)
[2019-02-27] MEDS: metFORMIN 500 MG TAB PO SCH ×2 (09:05→18:11)
[2019-02-27 15:01] VITALS: BP 124/58; PULSE 98; RESP 18
--- NOTE | 2019-02-27 16:05 | PN ---
Date/Time of Note Date/Time of Note DATE: 02/27/19 TIME: 16:04 Assessment/Plan VTE Prophylaxis Risk score (from Ns)>0 risk: 7 SCD applied (from Nsg): Yes Pharmacological prophylaxis: LMWH Lines/Catheters IV Catheter Type (from Nrsg): Peripheral IV Urinary Cath still in place: No Assessment/Plan Hospital Course Is awake alert, had his right upper extremity after surgery and elevated, patient has an episode of hypoglycemia in the morning we will decrease Lantus to 60 units, continue current care follow-up orthopedic surgery recommendations. Assessment/Plan -Closed fracture of right distal humerus. Dr. Merrill is following in orthopedic surgery consultation. S/p ORIF R humerus. S/p evaluation by Dr. Ferguson in cardiology consultation, cleared for surgery. -Abrasion, left knee, continue local care. -Abrasion of face, continue local care. -Diabetes, continue Tradjenta Actos Lantus and NovoLog -Hypertension, continue lisinopril -Hypothyroidism, continue levothyroxine -Morbid obesity with BMI of 42 -History of minor stroke, continue aspirin -History of [place] according to the patient Further recommendations based on clinical course. Plan of care discussed with Dr. Paige. Result Diagram: 02/26/19 0436 02/26/19 0436 Results 24hrs Laboratory Tests Test 02/26/19 17:27 02/26/19 20:44 02/27/19 08:55 02/27/19 09:12 Bedside Glucose 104 83 69 L 71 Test 02/27/19 09:31 02/27/19 09:51 02/27/19 13:04 Bedside Glucose 111 131 112 Exam/Review of Systems Exam Vitals Vital Signs Date Temp Pulse Resp B/P (MAP) Pulse Ox O2 O2 Flow FiO2 Time Delivery Rate 02/27/19 98.3 98 18 124/58 99 Room Air 15:01 (80) 02/24/19 2.0 00:00 Intake and Output 02/26/19 02/26/19 02/27/19 1515:00 23:00 07:00 IntakeIntake Total 300 ml 1420 ml 240 ml BalanceBalance 300 ml 1420 ml 240 ml Constitutional: alert, oriented Head: normocephalic Neck: supple Respiratory: clear to auscultation Cardiovascular: nl pulses Gastrointestinal: soft, non-tender Extremities: normal pulses, other (Right upper extremity status post surgery elevated) Neurological: nl mental status Results Results 24hrs Laboratory Tests Test 02/26/19 17:27 02/26/19 20:44 02/27/19 08:55 02/27/19 09:12 Bedside Glucose 104 83 69 L 71 Test 02/27/19 09:31 02/27/19 09:51 02/27/19 13:04 Bedside Glucose 111 131 112 Medications Medication Current Medications Aspirin (Halfprin) 81 mg DAILY PO Last administered on 02/27/19 08:58; Admin Dose 81 MG; Start 02/22/19 at 09:00 Atorvastatin Calcium (Lipitor) 40 mg QHS PO Last administered on 02/26/19 20:50; Admin Dose 40 MG; Start 02/21/19 at 21:00 Cholecalciferol (Vitamin D) 2,000 unit DAILY PO Last administered on 02/27/19 08:58; Admin Dose 2,000 UNIT; Start 02/22/19 at 09:00 Levothyroxine Sodium (Synthroid) 200 mcg BEFORE BREAKFAST PO Last administered on 02/27/19 05:47; Admin Dose 200 MCG; Start 02/22/19 at 07:00 Linagliptin (Tradjenta) 5 mg DAILY PO Last administered on 02/27/19 08:58; Admin Dose 5 MG; Start 02/22/19 at 09:00 Lisinopril (Zestril) 40 mg BID PO Last administered on 02/27/19 08:58; Admin Dose 40 MG; Start 02/21/19 at 21:00 Magnesium Oxide (Mag-Ox 400) 400 mg BID PO Last administered on 02/27/19 08:58; Admin Dose 400 MG; Start 02/21/19 at 21:00 Metformin HCl (Glucophage) 1,000 mg WITH BREAKFAST DINNE PO Last administered on 02/27/19 09:05; Admin Dose 1,000 MG; Start 02/21/19 at 17:55 Pioglitazone HCl (Actos) 30 mg DAILY PO Last administered on 02/27/19 08:59; Admin Dose 30 MG; Start 02/22/19 at 09:00 Multivitamins/ Minerals (Theragran-M) 1 tab DAILY PO Last administered on 02/27 08:58; Admin Dose 1 TAB; Start 02/22/19 at 09:00 Pantoprazole (Protonix Tab) 40 mg DAILY@06 PO Last administered on 02/27/19at 05:47; Admin Dose 40 MG; Start 02/22/19 at 06:00 Miscellaneous Information 1 ea NOTE XX ; Start 02/21/19 at 17:00 Glucose (Glutose) 15 gm Q15M PRN PO DECREASED GLUCOSE; Start 02/21/19 at 17:00 Glucose (Glutose) 22.5 gm Q15M PRN PO DECREASED GLUCOSE; Start 02/21/19 at 17:00 Dextrose (D50w Syringe) 25 ml Q15M PRN IV DECREASED GLUCOSE; Start 02/21/19 at 17:00 Dextrose (D50w Syringe) 50 ml Q15M PRN IV DECREASED GLUCOSE; Start 02/21/19 at 17:00 Glucagon (Glucagen) 1 mg Q15M PRN IM DECREASED GLUCOSE; Start 02/21/19 at 17:00 Glucose (Glutose) 15 gm Q15M PRN BUCCAL DECREASED GLUCOSE; Start 02/21/19 at 17:00 Diagnostic Test (Pha) (Accu-Chek) 1 ea 02 XX Last administered on 02/22/19at 02:00; Admin Dose 1 EA; Start 02/22/19 at 02:00 Insulin Aspart (Novolog Insulin Pen) NOVOLOG *MILD* ALGORITHM WITH MEALS BEDTIME SC Last administered on 02/26/19at 12:36; Admin Dose 2 UNIT; Start 02/21/19 at 17:55 Acetaminophen/ Hydrocodone Bitart ([place] (10/325)) 1 tab Q4H PRN PO MODERATE PAIN LEVEL 4-6 Last administered on 02/27/19at 09:05; Admin Dose 1 TAB; Start 02/21/19 at 18:10 Morphine Sulfate (morphine) 4 mg Q4H PRN IV SEVERE PAIN LEVEL 7-10 Last administered on 02/23/19at 06:34; Admin Dose 4 MG; Start 02/21/19 at 22:30 IV Flush (NS 3 ml) 3 ml PER PROTOCOL IV ; Start 02/23/19 at 18:30 Enoxaparin Sodium (Lovenox) 40 mg DAILY SC Last administered on 02/27/19at 08:59; Admin Dose 40 MG; Start 02/24/19 at 09:00 Hydromorphone HCl (Dilaudid) 1 mg Q4H PRN IV SEVERE PAIN LEVEL 7-10; Start 02/23/19 at 18:30 Acetaminophen/ Hydrocodone Bitart ([place] (5/325)) 1 tab Q3H PRN PO MODERATE YVES N LEVEL 4-6 Last administered on 02/27/19at 01:15; Admin Dose 1 TAB; Start 02/23/19 at 18:30 Senna (Senokot) 2 tab BID PO Last administered on 02/27/19at 08:58; Admin Dose 2 TAB; Start 02/25/19 at 11:00 Insulin Aspart (Novolog Insulin Pen) 5 unit WITH MEALS SC Last administered on 02/27/19 13:07; Admin Dose 5 UNIT; Start 02/25/19 at 17:55 Insulin Glargine (Lantus) 60 units QHS SC ; Start 02/27/19 at 21:00; Status VICKI SMITH Feb 27, 2019 16:05
[2019-02-27 20:52] VITALS: BP 122/61; PULSE 92; RESP 17
[2019-02-27] MEDS: ATORVASTATIN 40 MG TAB PO SCH (22:14)
[2019-02-27] MEDS: INSULIN GLARGINE [LANTus] (100 UNITS/ML) SYG SC SCH (23:12)
[2019-02-28] MEDS: ACCU-CHEK XX SCH (02:00)
[2019-02-28 02:19] VITALS: BP 152/70; PULSE 87; RESP 18
[2019-02-28] MEDS: PANTOPRAZOLE (EC) 40 MG TAB PO SCH (06:45)
[2019-02-28] MEDS: HYDROCODONE/APAP (10/325) TAB PO PRN ×2 (06:45→19:13)
[2019-02-28] MEDS: LEVOTHYROXINE 100 MCG TAB PO SCH (06:45)
[2019-02-28] MEDS: INSULIN ASPART [NOVOLOG] 3 ML PEN SC SCH ×7 (07:50→21:00)
[2019-02-28 08:23] VITALS: BP 131/63; PULSE 76; RESP 18
[2019-02-28] MEDS: MULTIVITAMINS/MINERALS TAB PO SCH (08:28)
[2019-02-28] MEDS: PIOGLITAZONE 30 MG TAB PO SCH (08:28)
[2019-02-28] MEDS: LISINOPRIL 20 MG TAB PO SCH ×2 (08:28→21:03)
[2019-02-28] MEDS: SENNA TAB PO SCH ×2 (08:28→21:02)
[2019-02-28] MEDS: CHOLECALCIFEROL 2,000 UNIT CAP PO SCH (08:29)
[2019-02-28] MEDS: LINAGLIPTIN 5 MG TABLET PO SCH (08:29)
[2019-02-28] MEDS: ASPIRIN (EC) 81 MG TAB PO SCH (08:29)
[2019-02-28] MEDS: MAGNESIUM OXIDE 400 MG TAB PO SCH ×2 (08:29→21:02)
[2019-02-28] MEDS: metFORMIN 500 MG TAB PO SCH ×2 (08:32→17:49)
[2019-02-28] MEDS: ENOXAPARIN 40 MG/0.4 ML SYG SC SCH (08:33)
[2019-02-28 15:23] VITALS: BP 139/65; PULSE 79; RESP 18
--- NOTE | 2019-02-28 15:42 | PN ---
Date/Time of Note Date/Time of Note DATE: 02/28/19 TIME: 15:39 Assessment/Plan VTE Prophylaxis Risk score (from Ns)>0 risk: 7 SCD applied (from Ns): Yes Pharmacological prophylaxis: LMWH Lines/Catheters IV Catheter Type (from [facility]): Peripheral IV Urinary Cath still in place: No Assessment/Plan Hospital Course Patient's lives alone however needs 24-hour supervision care will benefit from correction facility placement for short-term recovery from fracture of the right humerus. Assessment/Plan -Closed fracture of right distal humerus. Dr. Merrill is following in orthopedic surgery consultation. S/p ORIF R humerus. S/p evaluation by Dr. Ferguson in cardiology consultation, cleared for surgery. -Abrasion, left knee, continue local care. -Abrasion of face, continue local care. -Diabetes, continue Tradjenta Actos Lantus and NovoLog -Hypertension, continue lisinopril -Hypothyroidism, continue levothyroxine -Morbid obesity with BMI of 42 -History of minor stroke, continue aspirin -History of [place] according to the patient Further recommendations based on clinical course. Plan of care discussed with Dr. Paige. Result Diagram: 02/28/19 0448 02/28/19 0448 Results 24hrs Laboratory Tests Test 02/27/19 17:39 02/27/19 22:11 02/27/19 23:10 02/28/19 04:48 Bedside Glucose 129 77 126 White Blood Count 2.9 #L Red Blood Count 3.18 L Hemoglobin 8.4 L Hematocrit 26.9 L Mean Corpuscular Volume 84.6 Mean Corpuscular 26.4 L Hemoglobin Mean Corpuscular 31.2 L Hemoglobin Concent Red Cell Distribution 17.6 H Width Platelet Count 177 Mean Platelet Volume 11.0 H Immature Granulocytes % 1.700 H Neutrophils % 62.3 Lymphocytes % 19.6 Monocytes % 13.3 H Eosinophils % 2.8 Basophils % 0.3 Nucleated Red Blood 0.7 H Cells % Immature Granulocytes # 0.050 H Neutrophils # 1.8 Lymphocytes # 0.6 L Monocytes # 0.4 Eosinophils # 0.1 Basophils # 0.0 Nucleated Red Blood 0.0 Cells # Sodium Level 137 Potassium Level 4.4 Chloride Level 103 Carbon Dioxide Level 31 Anion Gap 3 L Blood Urea Nitrogen 19 Creatinine 0.98 Est Glomerular Filtrat 60 Rate mL/min Glucose Level 97 Calcium Level 8.4 Test 02/28/19 08:26 02/28/19 12:52 Bedside Glucose 85 98 Exam/Review of Systems Exam Vitals Vital Signs Date Temp Pulse Resp B/P (MAP) Pulse Ox O2 O2 Flow FiO2 Time Delivery Rate 02/28/19 97.5 76 18 131/63 95 Room Air 08:23 (85) Intake and Output 02/27/19 02/27/19 02/28/19 1515:00 23:00 07:00 IntakeIntake Total 1400 ml 1220 ml 100 ml BalanceBalance 1400 ml 1220 ml 100 ml Exam Constitutional: alert, oriented Head: normocephalic Neck: supple Respiratory: clear to auscultation Cardiovascular: nl pulses Gastrointestinal: soft, non-tender Extremities: normal pulses, other (Right upper extremity status post surgery as a wrist brace and right upper extremity dressing) Neurological: nl mental status Results Results 24hrs Laboratory Tests Test 02/27/19 17:39 02/27/19 22:11 02/27/19 23:10 02/28/19 04:48 Bedside Glucose 129 77 126 White Blood Count 2.9 #L Red Blood Count 3.18 L Hemoglobin 8.4 L Hematocrit 26.9 L Mean Corpuscular Volume 84.6 Mean Corpuscular 26.4 L Hemoglobin Mean Corpuscular 31.2 L Hemoglobin Concent Red Cell Distribution 17.6 H Width Platelet Count 177 Mean Platelet Volume 11.0 H Immature Granulocytes % 1.700 H Neutrophils % 62.3 Lymphocytes % 19.6 Monocytes % 13.3 H Eosinophils % 2.8 Basophils % 0.3 Nucleated Red Blood 0.7 H Cells % Immature Granulocytes # 0.050 H Neutrophils # 1.8 Lymphocytes # 0.6 L Monocytes # 0.4 Eosinophils # 0.1 Basophils # 0.0 Nucleated Red Blood 0.0 Cells # Sodium Level 137 Potassium Level 4.4 Chloride Level 103 Carbon Dioxide Level 31 Anion Gap 3 L Blood Urea Nitrogen 19 Creatinine 0.98 Est Glomerular Filtrat 60 Rate mL/min Glucose Level 97 Calcium Level 8.4 Test 02/28/19 08:26 02/28/19 12:52 Bedside Glucose 85 98 Medications Medication Current Medications Aspirin (Halfprin) 81 mg DAILY PO Last administered on 02/28/19at 08:29; Admin Dose 81 MG; Start 02/22/19 at 09:00 Atorvastatin Calcium (Lipitor) 40 mg QHS PO Last administered on 02/27/19 22:14; Admin Dose 40 MG; Start 02/21/19 at 21:00 Cholecalciferol (Vitamin D) 2,000 unit DAILY PO Last administered on 02/28/19 08:29; Admin Dose 2,000 UNIT; Start 02/22/19 at 09:00 Levothyroxine Sodium (Synthroid) 200 mcg BEFORE BREAKFAST PO Last administered on 02/28/19 06:45; Admin Dose 200 MCG; Start 02/22/19 at 07:00 Linagliptin (Tradjenta) 5 mg DAILY PO Last administered on 02/28/19 08:29; Admin Dose 5 MG; Start 02/22/19 at 09:00 Lisinopril (Zestril) 40 mg BID PO Last administered on 02/28/19 08:28; Admin Dose 40 MG; Start 02/21/19 at 21:00 Magnesium Oxide (Mag-Ox 400) 400 mg BID PO Last administered on 02/28/19 08:29; Admin Dose 400 MG; Start 02/21/19 at 21:00 Metformin HCl (Glucophage) 1,000 mg WITH BREAKFAST DINNE PO Last administered on 02/28/19 08:32; Admin Dose 1,000 MG; Start 02/21/19 at 17:55 Pioglitazone HCl (Actos) 30 mg DAILY PO Last administered on 02/28/19 08:28; Admin Dose 30 MG; Start 02/22/19 at 09:00 Multivitamins/ Minerals (Theragran-M) 1 tab DAILY PO Last administered on 02/28/19 08:28; Admin Dose 1 TAB; Start 02/22/19 at 09:00 Pantoprazole (Protonix Tab) 40 mg DAILY@06 PO Last administered on 02/28/19 06:45; Admin Dose 40 MG; Start 02/22/19 at 06:00 Miscellaneous Information 1 ea NOTE XX ; Start 02/21/19 at 17:00 Glucose (Glutose) 15 gm Q15M PRN PO DECREASED GLUCOSE; Start 02/21/19 at 17:00 Glucose (Glutose) 22.5 gm Q15M PRN PO DECREASED GLUCOSE; Start 02/21/19 at 17:00 Dextrose (D50w Syringe) 25 ml Q15M PRN IV DECREASED GLUCOSE; Start 02/21/19 at 17:00 Dextrose (D50w Syringe) 50 ml Q15M PRN IV DECREASED GLUCOSE; Start 02/21/19 at 17:00 Glucagon (Glucagen) 1 mg Q15M PRN IM DECREASED GLUCOSE; Start 02/21/19 at 17:00 Glucose (Glutose) 15 gm Q15M PRN BUCCAL DECREASED GLUCOSE; Start 02/21/19 at 17:00 Diagnostic Test (Pha) (Accu-Chek) 1 ea 02 XX Last administered on 02/22/19at 02:00; Admin Dose 1 EA; Start 02/22/19 at 02:00 Insulin Aspart (Novolog Insulin Pen) NOVOLOG *MILD* ALGORITHM WITH MEALS BEDTIME SC Last administered on 02/26/19 12:36; Admin Dose 2 UNIT; Start 02/21/19 at 17:55 Acetaminophen/ Hydrocodone Bitart ([place] (10/325)) 1 tab Q4H PRN PO MODERATE PAIN LEVEL 4-6 Last administered on 02/28/19at 06:45; Admin Dose 1 TAB; Start 02/21/19 at 18:10 Morphine Sulfate (morphine) 4 mg Q4H PRN IV SEVERE PAIN LEVEL 7-10 Last administered on 02/23/19 06:34; Admin Dose 4 MG; Start 02/21/19 at 22:30 IV Flush (NS 3 ml) 3 ml PER PROTOCOL IV ; Start 02/23/19 at 18:30 Enoxaparin Sodium (Lovenox) 40 mg DAILY SC Last administered on 02/28/19 08:33; Admin Dose 40 MG; Start 02/24/19 at 09:00 Hydromorphone HCl (Dilaudid) 1 mg Q4H PRN IV SEVERE PAIN LEVEL 7-10; Start 02/23/19 at 18:30 Acetaminophen/ Hydrocodone Bitart ([place] (5/325)) 1 tab Q3H PRN PO MODERATE PAIN LEVEL 4-6 Last administered on 02/27/19 22:17; Admin Dose 1 TAB; Start 02/23/19 at 18:30 Senna (Senokot) 2 tab BID PO Last administered on 02/28/19 08:28; Admin Dose 2 TAB; Start 02/25/19 at 11:00 Insulin Aspart (Novolog Insulin Pen) 5 unit WITH MEALS SC Last administered on 02/28/19at 12:54; Admin Dose 5 UNIT; Start 02/25/19 at 17:55 Insulin Glargine (Lantus) 60 units QHS SC Last administered on 02/27/19at 23:12; Admin Dose 60 UNITS; Start 02/27/19 at 21:00 VICKI ZULUAGA Feb 28, 2019 15:42
[2019-02-28 20:15] VITALS: BP 125/58; PULSE 84; RESP 18
[2019-02-28] MEDS: INSULIN GLARGINE [LANTus] (100 UNITS/ML) SYG SC SCH (21:00)
[2019-02-28] MEDS: ATORVASTATIN 40 MG TAB PO SCH (21:02)
[2019-02-28] MEDS ORDERED: INSULIN GLARGINE [LANTus] (100 UNITS/ML) SYG SC ONE (22:30)
[2019-03-01] MEDS: ACCU-CHEK XX SCH (02:00)
[2019-03-01 02:29] VITALS: BP 140/60; PULSE 84; RESP 19
[2019-03-01] MEDS: PANTOPRAZOLE (EC) 40 MG TAB PO SCH (05:40)
[2019-03-01] MEDS: LEVOTHYROXINE 100 MCG TAB PO SCH (05:40)
[2019-03-01 08:29] VITALS: BP 140/63; PULSE 78; RESP 18
[2019-03-01] MEDS: LINAGLIPTIN 5 MG TABLET PO SCH (08:55)
[2019-03-01] MEDS: CHOLECALCIFEROL 2,000 UNIT CAP PO SCH (08:56)
[2019-03-01] MEDS: SENNA TAB PO SCH ×2 (08:56→20:43)
[2019-03-01] MEDS: MULTIVITAMINS/MINERALS TAB PO SCH (08:56)
[2019-03-01] MEDS: ASPIRIN (EC) 81 MG TAB PO SCH (08:57)
[2019-03-01] MEDS: INSULIN ASPART [NOVOLOG] 3 ML PEN SC SCH ×7 (08:58→20:59)
[2019-03-01] MEDS: ENOXAPARIN 40 MG/0.4 ML SYG SC SCH (08:59)
[2019-03-01] MEDS: PIOGLITAZONE 30 MG TAB PO SCH (09:03)
[2019-03-01] MEDS: MAGNESIUM OXIDE 400 MG TAB PO SCH ×2 (09:05→20:46)
[2019-03-01] MEDS: LISINOPRIL 20 MG TAB PO SCH ×2 (09:05→20:45)
[2019-03-01] MEDS: metFORMIN 500 MG TAB PO SCH ×2 (09:10→17:50)
[2019-03-01] MEDS: HYDROCODONE/APAP (10/325) TAB PO PRN (10:35)
--- NOTE | 2019-03-01 14:04 | CONS ---
Assessment/Plan Assessment/Plan Hospital Course (Demo Recall) Preoperative cardiac risk stratification Right upper extremity fracture status post surgery 02/23/2019 Preserved left ventricular ejection fraction Diabetes Hypertension Dyslipidemia Patient is doing well status post surgery Blood pressure remains well controlled No new cardiac orders at the current time Consultation Date/Type/Reason Admit Date/Time Feb 21, 2019 at 12:07 Initial Consult Date Type of Consult Cardiology Date/Time of Note DATE: 03/01/19 TIME: 14:03 24 HR Interval Summary Free Text/Dictation No shortness of breath, palpitations, dizziness Exam/Review of Systems Vital Signs Vitals Vital Signs Date Temp Pulse Resp B/P (MAP) Pulse Ox O2 O2 Flow FiO2 Time Delivery Rate 03/01/19 98.4 78 18 140/63 94 Room Air 08:29 (88) Intake and Output 02/28/19 02/28/19 03/01/19 1515:00 23:00 07:00 IntakeIntake Total 1080 ml 940 ml 120 ml BalanceBalance 1080 ml 940 ml 120 ml Exam Constitutional: alert, oriented (Eating lunch, no apparent distress) Head: normocephalic Respiratory: other (Coarse breath sounds bilaterally, no wheezing) Cardiovascular: regular rate and rhythm (S1-S2 heard) Gastrointestinal: soft, non-tender, bowel sounds Extremities: other (No significant edema) Labs Result Diagram: 02/28/198 02/28/198 Results 24hrs Laboratory Tests Test 02/28/19 17:48 02/28/19 20:53 02/28/19 21:13 02/28/19 21:38 Bedside Glucose 79 66 L 60 L 98 Test 03/01/19 08:52 03/01/19 13:18 Bedside Glucose 133 209 Medications Medications Current Medications Aspirin (Halfprin) 81 mg DAILY PO Last administered on 03/01/19at 08:57; Admin Dose 81 MG; Start 02/22/19 at 09:00 Atorvastatin Calcium (Lipitor) 40 mg QHS PO Last administered on 02/28/19at 21:02; Admin Dose 40 MG; Start 02/21/19 at 21:00 Cholecalciferol (Vitamin D) 2,000 unit DAILY PO Last administered on 03/01/19at 08:56; Admin Dose 2,000 UNIT; Start 02/22/19 at 09:00 Levothyroxine Sodium (Synthroid) 200 mcg BEFORE BREAKFAST PO Last administered on 03/01/19 05:40; Admin Dose 200 MCG; Start 02/22/19 at 07:00 Linagliptin (Tradjenta) 5 mg DAILY PO Last administered on 03/01/19 08:55; Admin Dose 5 MG; Start 02/22/19 at 09:00 Lisinopril (Zestril) 40 mg BID PO Last administered on 03/01/19 09:05; Admin Dose 40 MG; Start 02/21/19 at 21:00 Magnesium Oxide (Mag-Ox 400) 400 mg BID PO Last administered on 03/01/19 09: 05; Admin Dose 400 MG; Start 02/21/19 at 21:00 Metformin HCl (Glucophage) 1,000 mg WITH BREAKFAST DINNE PO Last administered on 03/01/19 09:10; Admin Dose 1,000 MG; Start 02/21/19 at 17:55 Pioglitazone HCl (Actos) 30 mg DAILY PO Last administered on 03/01/19 09:03; Admin Dose 30 MG; Start 02/22/19 at 09:00 Multivitamins/ Minerals (Theragran-M) 1 tab DAILY PO Last administered on 03/01/19 08:56; Admin Dose 1 TAB; Start 02/22/19 at 09:00 Pantoprazole (Protonix Tab) 40 mg DAILY@06 PO Last administered on 03/01/19at 05:40; Admin Dose 40 MG; Start 02/22/19 at 06:00 Miscellaneous Information 1 ea NOTE XX ; Start 02/21/19 at 17:00 Glucose (Glutose) 15 gm Q15M PRN PO DECREASED GLUCOSE; Start 02/21/19 at 17:00 Glucose (Glutose) 22.5 gm Q15M PRN PO DECREASED GLUCOSE; Start 02/21/19 at 17:00 Dextrose (D50w Syringe) 25 ml Q15M PRN IV DECREASED GLUCOSE; Start 02/21/19 at 17:00 Dextrose (D50w Syringe) 50 ml Q15M PRN IV DECREASED GLUCOSE; Start 02/21/19 at 17:00 Glucagon (Glucagen) 1 mg Q15M PRN IM DECREASED GLUCOSE; Start 02/21/19 at 17:00 Glucose (Glutose) 15 gm Q15M PRN BUCCAL DECREASED GLUCOSE; Start 02/21/19 at 17:00 Diagnostic Test (Pha) (Accu-Chek) 1 ea 02 XX Last administered on 02/22/19 02:00; Admin Dose 1 EA; Start 02/22/19 at 02:00 Insulin Aspart (Novolog Insulin Pen) NOVOLOG *MILD* ALGORITHM WITH MEALS BEDTIME SC Last administered on 03/01/19 13:21; Admin Dose 2 UNIT; Start at 17:55 Acetaminophen/ Hydrocodone Bitart ([place] (10/325)) 1 tab Q4H PRN PO MODERATE PAIN LEVEL 4-6 Last administered on 03/01/19 10:35; Admin Dose 1 TAB; Start 02/21/19 at 18:10 Morphine Sulfate (morphine) 4 mg Q4H PRN IV SEVERE PAIN LEVEL 7-10 Last administered on 02/23/19 06:34; Admin Dose 4 MG; Start 02/21/19 at 22:30 IV Flush (NS 3 ml) 3 ml PER PROTOCOL IV ; Start 02/23/19 at 18:30 Enoxaparin Sodium (Lovenox) 40 mg DAILY SC Last administered on 03/01/19 08:59; Admin Dose 40 MG; Start 02/24/19 at 09:00 Hydromorphone HCl (Dilaudid) 1 mg Q4H PRN IV SEVERE PAIN LEVEL 7-10; Start 02/23 at 18:30 Acetaminophen/ Hydrocodone Bitart ([place] (5/325)) 1 tab Q3H PRN PO MODERATE PAIN LEVEL 4-6 Last administered on 02/27/19 22:17; Admin Dose 1 TAB; Start 02/23/19 at 18:30 Senna (Senokot) 2 tab BID PO Last administered on 03/01/19 08:56; Admin Dose 2 TAB; Start 02/25/19 at 11:00 Insulin Aspart (Novolog Insulin Pen) 5 unit WITH MEALS SC Last administered on 03/01/19 13:20; Admin Dose 5 UNIT; Start 02/25/19 at 17:55 Insulin Glargine (Lantus) 60 units QHS SC ; Start 03/01/19 at 21:00 Andrew Ferguson DO Mar 01, 2019 14:04
[2019-03-01 14:23] VITALS: BP 128/82; PULSE 83; RESP 18
--- NOTE | 2019-03-01 18:21 | PN ---
Date/Time of Note Date/Time of Note DATE: 03/01/19 TIME: 18:17 Assessment/Plan VTE Prophylaxis Risk score (from Ns)>0 risk: 5 SCD applied (from Ns): Yes SCD contraindicated: patient refusal Pharmacological prophylaxis: LMWH Lines/Catheters IV [facility] Type (from [facility] [place] Urinary Cath still in place: No Assessment/Plan Hospital Course Patient with episode of hypoglycemia, Lantus was followed letter at night now blood sugar is above 200 we will continue Lantus at the slightly lower dose of 50 units continue pre-meal NovoLog. Patient's lives alone however needs 24-hour supervision care will benefit from correction facility placement for short- term recovery from fracture of the right humerus. Assessment/Plan -Closed fracture of right distal humerus. Dr. Merrill is following in orthopedic surgery consultation. S/p ORIF R humerus. S/p evaluation by Dr. Ferguson in cardiology consultation, cleared for surgery. -Abrasion, left knee, continue local care. -Abrasion of face, continue local care. -Diabetes, continue Tradjenta Actos Lantus and NovoLog -Hypertension, continue lisinopril -Hypothyroidism, continue levothyroxine -Morbid obesity with BMI of 42 -History of minor stroke, continue aspirin -History of [place] according to the patient Further recommendations based on clinical course. Plan of care discussed with Dr. Paige. Result Diagram: 02/28/19 0448 02/28/198 Results 24hrs Laboratory Tests Test 02/28/19 20:53 02/28/19 21:13 02/28/19 21:38 03/01/19 08:52 Bedside Glucose 66 L 60 L 98 133 Test 03/01/19 13:18 03/01/19 17:48 Bedside Glucose 209 210 Exam/Review of Systems Exam Vitals Vital Signs Date Temp Pulse Resp B/P (MAP) Pulse Ox O2 O2 Flow FiO2 Time Delivery Rate 03/01/19 98.3 83 18 128/82 99 Room Air 14:23 (97) Intake and Output 02/28/19 02/28/19 03/01/19 1515:00 23:00 07:00 IntakeIntake Total 1080 ml 940 ml 120 ml BalanceBalance 1080 ml 940 ml 120 ml Exam Constitutional: alert, oriented Head: normocephalic Neck: supple Respiratory: clear to auscultation Cardiovascular: nl pulses Gastrointestinal: soft, non-tender Extremities: normal pulses, other (Right upper extremity status post surgery as a wrist brace and right upper extremity dressing) Neurological: nl mental status Results Results 24hrs Laboratory Tests Test 02/28/19 20:53 02/28/19 21:13 02/28/19 21:38 03/01/19 08:52 Bedside Glucose 66 L 60 L 98 133 Test 03/01/19 13:18 03/01/19 17:48 Bedside Glucose 209 210 Medications Medication Current Medications Aspirin (Halfprin) 81 mg DAILY PO Last administered on 03/01/19 08:57; Admin Dose 81 MG; Start 02/22/19 at 09:00 Atorvastatin Calcium (Lipitor) 40 mg QHS PO Last administered on 02/28/19 21:02; Admin Dose 40 MG; Start 02/21/19 at 21:00 Cholecalciferol (Vitamin D) 2,000 unit DAILY PO Last administered on 03/01/19 08:56; Admin Dose 2,000 UNIT; Start 02/22/19 at 09:00 Levothyroxine Sodium (Synthroid) 200 mcg BEFORE BREAKFAST PO Last administered on 03/01/19 05:40; Admin Dose 200 MCG; Start 02/22/19 at 07:00 Linagliptin (Tradjenta) 5 mg DAILY PO Last administered on 03/01/19 08:55; Admin Dose 5 MG; Start 02/22/19 at 09:00 Lisinopril (Zestril) 40 mg BID PO Last administered on 03/01/19 09:05; Admin Dose 40 MG; Start 02/21/19 at 21:00 Magnesium Oxide (Mag-Ox 400) 400 mg BID PO Last administered on 03/01/19 09:05; Admin Dose 400 MG; Start 02/21/19 at 21:00 Metformin HCl (Glucophage) 1,000 mg WITH BREAKFAST DINNE PO Last administered on 03/01/19 17:50; Admin Dose 1,000 MG; Start 02/21/19 at 17:55 Pioglitazone HCl (Actos) 30 mg DAILY PO Last administered on 03/01/19 09:03; Admin Dose 30 MG; Start 02/22/19 at 09:00 Multivitamins/ Minerals (Theragran-M) 1 tab DAILY PO Last administered on 03/01/19 08:56; Admin Dose 1 TAB; Start 02/22/19 at 09:00 Pantoprazole (Protonix Tab) 40 mg DAILY@06 PO Last administered on 03/01/19at 05:40; Admin Dose 40 MG; Start 02/22/19 at 06:00 Miscellaneous Information 1 ea NOTE XX ; Start 02/21/19 at 17:00 Glucose (Glutose) 15 gm Q15M PRN PO DECREASED GLUCOSE; Start 02/21/19 at 17:00 Glucose (Glutose) 22.5 gm Q15M PRN PO DECREASED GLUCOSE; Start 02/21/19 at 17:00 Dextrose (D50w Syringe) 25 ml Q15M PRN IV DECREASED GLUCOSE; Start 02/21/19 at 17:00 Dextrose (D50w Syringe) 50 ml Q15M PRN IV DECREASED GLUCOSE; Start 02/21/19 at 17:00 Glucagon (Glucagen) 1 mg Q15M PRN IM DECREASED GLUCOSE; Start 02/21/19 at 17:00 Glucose (Glutose) 15 gm Q15M PRN BUCCAL DECREASED GLUCOSE; Start 02/21/19 at 17:00 Diagnostic Test (Pha) (Accu-Chek) 1 ea 02 XX Last administered on 02/22/19at 02:00; Admin Dose 1 EA; Start 02/22/19 at 02:00 Insulin Aspart (Novolog Insulin Pen) NOVOLOG *MILD* ALGORITHM WITH MEALS BEDTIME SC Last administered on 03/01/19at 17:51; Admin Dose 2 UNIT; Start 02/21/19 at 17:55 Acetaminophen/ Hydrocodone Bitart ([place] (10/325)) 1 tab Q4H PRN PO MODERATE PAIN LEVEL 4-6 Last administered on 03/01/19at 10:35; Admin Dose 1 TAB; Start 02/21/19 at 18:10 Morphine Sulfate (morphine) 4 mg Q4H PRN IV SEVERE PAIN LEVEL 7-10 Last administered on 02/23/19 06:34; Admin Dose 4 MG; Start 02/21/19 at 22:30 IV Flush (NS 3 ml) 3 ml PER PROTOCOL IV ; Start 02/23/19 at 18:30 Enoxaparin Sodium (Lovenox) 40 mg DAILY SC Last administered on 03/01/19 08:59; Admin Dose 40 MG; Start 02/24/19 at 09:00 Hydromorphone HCl (Dilaudid) 1 mg Q4H PRN IV SEVERE PAIN LEVEL 7-10; Start 02/23/19 at 18:30 Acetaminophen/ Hydrocodone Bitart ([place] (5/325)) 1 tab Q3H PRN PO MODERATE PAIN LEVEL 4-6 Last administered on 02/27/19at 22:17; Admin Dose 1 TAB; Start 02/23/19 at 18:30 Senna (Senokot) 2 tab BID PO Last administered on 03/01/19at 08:56; Admin Dose 2 TAB; Start 02/25/19 at 11:00 Insulin Aspart (Novolog Insulin Pen) 5 unit WITH MEALS SC Last administered on 03/01/19at 17:51; Admin Dose 5 UNIT; Start 02/25/19 at 17:55 Insulin Glargine (Lantus) 60 units QHS SC ; Start 03/01/19 at 21:00 VICKI ZULUAGA Mar 01, 2019 18:21
[2019-03-01] MEDS: ATORVASTATIN 40 MG TAB PO SCH (20:46)
[2019-03-01 20:47] VITALS: BP 125/61; PULSE 83; RESP 20
[2019-03-01] MEDS ORDERED: INSULIN GLARGINE [LANTus] (100 UNITS/ML) SYG SC SCH ×2 (21:00)
[2019-03-02] MEDS: ACCU-CHEK XX SCH (02:00)
[2019-03-02 02:38] VITALS: BP 145/66; PULSE 78; RESP 20
[2019-03-02] MEDS: LEVOTHYROXINE 100 MCG TAB PO SCH (06:15)
[2019-03-02] MEDS: PANTOPRAZOLE (EC) 40 MG TAB PO SCH (06:15)
[2019-03-02 07:22] VITALS: BP 123/79; PULSE 83; RESP 18
[2019-03-02] MEDS: CHOLECALCIFEROL 2,000 UNIT CAP PO SCH (08:34)
[2019-03-02] MEDS: MULTIVITAMINS/MINERALS TAB PO SCH (08:34)
[2019-03-02] MEDS: LINAGLIPTIN 5 MG TABLET PO SCH (08:34)
[2019-03-02] MEDS: ASPIRIN (EC) 81 MG TAB PO SCH (08:34)
[2019-03-02] MEDS: PIOGLITAZONE 30 MG TAB PO SCH (08:35)
[2019-03-02] MEDS: LISINOPRIL 20 MG TAB PO SCH (08:35)
[2019-03-02] MEDS: metFORMIN 500 MG TAB PO SCH ×2 (08:35→18:02)
[2019-03-02] MEDS: SENNA TAB PO SCH (08:35)
[2019-03-02] MEDS: MAGNESIUM OXIDE 400 MG TAB PO SCH (08:35)
[2019-03-02] MEDS: ENOXAPARIN 40 MG/0.4 ML SYG SC SCH (08:36)
[2019-03-02] MEDS: INSULIN ASPART [NOVOLOG] 3 ML PEN SC SCH ×6 (08:37→18:01)
[2019-03-02 14:03] VITALS: BP 108/72; PULSE 78; RESP 18
== END 2019-03-02 18:30 | DRG 493 ==
LOC: E/R 09:40 → MS1 12:07
PROVIDERS: ADMIT Internal Medicine; ATTEND Internal Medicine
PROC: 01N60ZZ Release Radial Nerve, Open Approach (ICD-10-PCS; 2019-02-23)
PROC: 30233N1 Transfusion of Nonautologous Red Blood Cells into Peripheral Vein, Percutaneous Approach (ICD-10-PCS; 2019-02-23)
PROC: 0PSF04Z Reposition Right Humeral Shaft with Internal Fixation Device, Open Approach (ICD-10-PCS; principal; 2019-02-23 09:30)
DX: S42.351A Displaced comminuted fracture of shaft of humerus, right arm, initial encounter for closed fracture (principal); Z68.41 Body mass index [BMI] 40.0-44.9, adult; N17.9 Acute kidney failure, unspecified; S44.21XA Injury of radial nerve at upper arm level, right arm, initial encounter; S44.01XA Injury of ulnar nerve at upper arm level, right arm, initial encounter; E66.01 Morbid (severe) obesity due to excess calories; I10 Essential (primary) hypertension; E11.649 Type 2 diabetes mellitus with hypoglycemia without coma; E03.9 Hypothyroidism, unspecified; E78.5 Hyperlipidemia, unspecified; S80.212A Abrasion, left knee, initial encounter; S00.81XA Abrasion of other part of head, initial encounter; I25.2 Old myocardial infarction; W01.0XXA Fall on same level from slipping, tripping and stumbling without subsequent striking against object, initial encounter; Y92.014 Private driveway to single-family (private) house as the place of occurrence of the external cause; Z86.73 Personal history of transient ischemic attack (TIA), and cerebral infarction without residual deficits
CPT/HCPCS: 36415; 36430; 71045; 73070; 80048; 81003; 82962; 83036; 84484; 84703; 85025; 85610; 85730; 86850; 86900; 86901; 86920; 87086; 93005; 93306; 96374; 96375; 97110; 97116; 97161; 97165; 97530; 97535; J0690; J1170; J1650; J1815; J2250; J2270; J2405; J2710; J3010; J3370; J7030; J7040; P9016